=== PATIENT | female | born 1995 | race Caucasian/White ===

== ENCOUNTER 2016-09-11 17:36 | Emergency (ER) | payer OTHER ==
[~2016-09-11 17:36] MED LIST: ACET50TA PO; IBUP60TA PO; PRENTAB13 PO; ZOFR8TAB PO
[2016-09-11 18:22] LABS: CONTROL LINE UCG INT CTR LINE PRESENT
[2016-09-11] MEDS ORDERED: ONDANSETRON 4MG/2ML VIAL (J2405) As Ordered ONE (19:41)
[2016-09-11] MEDS ORDERED: MORPHINE 4 MG/ML 1ML SYRINGE As Ordered ONE (19:41)
[2016-09-11 20:00] LABS: BASO % 0.7 % (0.0-1.0); EOS # 0.1 K/mm3 (0.0-0.50); EOS % 1.9 % (0.0-3.0); LARGE UNSTAINED CELL # 0.1 K/mm3 (0.0-0.4); LARGE UNSTAINED CELL % 2.4 % (0.0-4.0); LYMPH # 2.3 K/mm3 (1.5-6.5); LYMPH % 41.4 % (24.0-44.0); MEAN CORPUSCULAR HEMOGLOBIN 24.8 pg (27.0-33.0); MEAN CORPUSCULAR HGB CONC 33.4 g/dl (32.0-36.5); MEAN CORPUSCULAR VOLUME 74.3 fl (80.0-96.0); MONO # 0.3 K/mm3 (0.0-0.8); MONO % 4.9 % (0.0-5.0); NEUTROPHILS # 2.7 K/mm3 (1.8-7.7); NEUTROPHILS % 48.7 % (36.0-66.0); PLATELET COUNT, AUTOMATED 204 k/mm3 (150-450); RED CELL DISTRIBUTION WIDTH 15.2 % (11.5-14.5); WHITE BLOOD COUNT 5.4 K/mm3 (4.0-10.0)
[2016-09-11 20:13] LABS: ALBUMIN 3.6 GM/DL (3.2-5.2); ALBUMIN/GLOBULIN RATIO 0.88 (1.00-1.93); ALKALINE PHOSPHATASE 76 U/L (45-117); ALT/SGPT 24 U/L (12-78); ANION GAP 8 MEQ/L (8-16); AST/SGOT 11 U/L (15-37); BILIRUBIN,DIRECT < 0.1 MG/DL (0.0-0.2); BILIRUBIN,TOTAL 0.2 MG/DL (0.2-1.0); BLOOD UREA NITROGEN 7 MG/DL (7-18); CALCIUM LEVEL 8.7 MG/DL (8.5-10.1); CARBON DIOXIDE LEVEL 27 MEQ/L (21-32); CHLORIDE LEVEL 108 MEQ/L (98-107); CREATININE FOR GFR 0.66 MG/DL (0.55-1.02); GLOMERULAR FILTRATION RATE > 60.0 (>60); GLUCOSE, FASTING 95 MG/DL (70-105); POTASSIUM SERUM 4.1 MEQ/L (3.5-5.1); SODIUM LEVEL 143 MEQ/L (136-145); TOTAL PROTEIN 7.7 GM/DL (6.4-8.2)
--- NOTE | 2016-09-11 20:40 | REPUSA ---
Clinical history: Right upper quadrant pain. Findings: The pancreas is limited in visualization secondary to overlying bowel gas. The liver demons trates uniform echotexture and echogenicity, with no mass lesions. However, there are two cystic lesi ons in the left lobe of the liver measuring up to 1.1 cm in diameter each. The right kidney measures 12.3 x 4.5 I 4.6 cm and is unremarkable. The gallbladder is unremarkable. The common bile duct measur es 4 mm and is within normal limits. There is no ascites. Impression: No acute findings.
[2016-09-11] MEDS ORDERED: NITROFURANTOIN (MACROBID) 100 MG CAP As Ordered ONE (21:53)
--- NOTE | 2016-09-11 22:08 | EDDOCDS ---
Physician Documentation [facility] Name: Kezia Butcher Age: 21 yrs Sex: Female : 1995 Arrival Date: 09/11/2016 Time: 17:36 Bed 12 Private MD: NO PRIMARY PHYSICIAN, . Disposition: 09/11/16 21:52 Discharged to Home/Self Care. Impression: Upper abdominal pain, unspecified, Urinary tract infection, site not specified. - Condition is Stable. - Discharge Instructions: Abdominal Pain, Adult, Urinary Tract Infection. - Prescriptions for Macrobid 100 mg Oral Capsule - take 100 milligrams by ORAL route every 12 hours for 7 days; 14 capsule. - Medication Reconciliation, Local Pharmacy Hours form. - Follow up: [facility]; When: 2 - 3 days; Reason: Recheck today's complaints. - Problem is new. - Symptoms have improved. - Notes: You were seen in the ED for upper abdominal pain. Bloodwork showed no acute findings. Ultrasound of the abdomen showed cystic lesions in the liver which will need following and recheck with your primary doctor but no other acute findings at this time. Chest Xray showed no acute findings as well. Urine tests did show bacteria which can be a sign of urinary tract infection. Take the antibiotics as written. test is negative. You will need to see a primary care doctor for ongoing care and recheck - please call the [facility] (see the referral below) and arrange to be seen. Return to the ED for any return of abdominal pain, fever, vomiting, inability to tolerate fluids, chest pain, trouble breathing, lightheadedness, loss of consciousness or any other concerns. Historical: - Allergies: No known drug Allergies; - Home Meds: 1. none - PMHx: none; - PSHx: none; - Social history: Smoking status: Patient states former smoker of tobacco. No barriers to communication noted, The patient speaks fluent Syriac, Speaks appropriately for age, Preferred Language: Syriac. - Family history: Not pertinent. - : The pt / caregiver states he / she is not on anticoagulants. Home medication list is obtained from the patient. - Exposure Risk Screening:: None identified. 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 3 in. (160.02 cm) (R); 19:44 BP 118 / 63 (auto/); kas2 19:44 Pulse 70 MON; Pulse Ox 100% ; kas2 19:55 BP 118 / 60 (auto/); kas2 19:55 Pulse 68 MON; Pulse Ox 100% ; kas2 20:10 BP 109 / 59 (auto/); kas2 20:10 Pulse 68 MON; Pulse Ox 99% ; kas2 20:25 BP 160 / 56 (auto/); kas2 20:25 Pulse 64 MON; Pulse Ox 99% ; kas2 20:40 BP 145 / 58 (auto/); kas2 20:40 Pulse 64 MON; Pulse Ox 99% ; kas2 20:48 BP 148 / 58; Pulse 99; Resp 18; Pulse Ox 99% ; Pain 4/10; kas2 20:55 BP 109 / 55 (auto/); kas2 20:55 Pulse 62 MON; Pulse Ox 99% ; kas2 21:10 BP 110 / 53 (auto/); kas2 21:10 Pulse 66 MON; Pulse Ox 99% ; kas2 21:10 Resp 20; Temp 98.3(O); Pain 0/10; kas2 21:25 BP 107 / 53 (auto/); kas2 21:25 Pulse 70 MON; Pulse Ox 98% ; kas2 21:40 BP 110 / 50 (auto/); kas2 21:40 Pulse 74 MON; Pulse Ox 99% ; kas2 21:55 BP 99 / 53 (auto/); kas2 21:56 Pulse 76 MON; Pulse Ox 98% ; kas2 17:37 Body Mass Index 37.20 (95.25 kg, 160.02 cm) dd6 MDM: 18:03 UA Ordered. EDMS 18:03 Urine Culture Ordered. EDMS 18:03 UCG- In Lab Ordered. EDMS 18:27 UCG- In Lab Reviewed. sd1 18:49 UA Reviewed. sd1 18:49 UCG- In Lab Reviewed. sd1 19:29 IV Saline Lock ordered. br1 19:30 Electron Gun Assembler/Pulse Ox/q 30 min VS ordered. br1 19:30 CBC with Diff Ordered. EDMS 19:30 BMP Ordered. EDMS 19:30 Liver Profile Ordered. EDMS 19:30 Lipase Ordered. EDMS 19:30 D-Dimer Quant Ordered. EDMS 19:30 morphine 4 mg IVP once ordered. br1 19:30 Ondansetron 4 mg IVP once ordered. br1 19:30 NS 0.9% 1000 ml IV at 150 mL/hr continuous ordered. br1 19:30 Ultrasound Abd Limited Ordered. EDMS 19:30 Chest, 2 View (pa\E\lat) Ordered. EDMS 19:31 ECG WITH READING ER PHYS+CARDIAG ordered. EDMS 20:23 CBC with Diff Reviewed. br1 20:23 BMP Reviewed. br1 20:23 Liver Profile Reviewed. br1 20:23 Lipase Reviewed. br1 20:23 D-Dimer Quant Reviewed. br1 20:37 Financial registration complete. zo 20:38 [facility] Payment Agreement was scanned into [employer] and attached to record. zo 21:49 Nitrofurantoin 100 mg PO once ordered. br1 Administered Medications: 19:48 Drug: Ondansetron 4 mg [ondansetron HCl 2 mg/mL intravenous solution (2 mL)] Route: kas2 IVP; Site: right antecubital; 19:48 Drug: NS 0.9% 1000 ml [sodium chloride 0.9 % intravenous solution] Route: IV; Rate: 150 kas2 mL/hr; Site: right antecubital; 19:49 Drug: morphine 4 mg [morphine 4 mg/mL intravenous cartridge (1 mL)] Route: IVP; Site: kas2 right antecubital; 20:48 Follow up: BP 148 / 58; Pulse 99 bpm; Resp 18 bpm; Pulse Ox 99% ; Pain 4/10 Adult; kas2 Response: No Adverse Reaction; Pain is decreased 21:54 Drug: Nitrofurantoin 100 mg [nitrofurantoin macrocrystal 50 mg capsule (2 caps)] Route: kas2 PO; Signatures: Dispatcher [employer] EDMS Mariza Piedra MD MD sd1 Nila Booth Lisa, RN RN lf1 Saroj Loo MD MD br1 Maria Esther Stewart RN RN kas2 The chart was reviewed and I authenticate all verbal orders and agree with the evaluation and treatment provided.Attachments: 20:38 [facility] Payment Agreement zo MTDD
--- NOTE | 2016-09-11 22:08 | EDDOCDS ---
Nurse's Notes [facility] Name: Kezia Butcher Age: 21 yrs Sex: Female : 1995 Arrival Date: 09/11/2016 Time: 17:36 Bed 12 Private MD: NO PRIMARY PHYSICIAN, . Diagnosis: Upper abdominal pain, unspecified;Urinary tract infection, site not specified Presentation: 09/11 17:58 Presenting complaint: Patient states: Intermittent diffuse lower abdominal pain that lf1 has been ongoing for more than two weeks. Pain describes pain as sharp and rates pain at 6/10 with nausea, dizziness and increased urination. reports burning with urination. Risk factors: the patient reports no vaginal bleeding. Adult Sepsis Screening: The patient does not have new or worsening altered mentation. Patient's respiratory rate is less than 22. Systolic blood pressure is greater than 100. Patient has a qSOFA score of 0- Negative Sepsis Screen. Suicide/Homicide risk assessment- the patient denies having any suicidal and/or homicidal ideations and does not present with any other emotional, behavioral or mental health complaints. 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 Transition of care: patient was not received from another setting of care. 17:58 Acuity: ROBERTO Level 3 lf1 17:58 Method Of Arrival: Walkin/Carried/Asstd lf1 Triage Assessment: 18:01 General: Appears in no apparent distress, comfortable, Behavior is cooperative. Pain: lf1 Location: right lower quadrant and left lower quadrant Pain currently is 6 out of 10 on a pain scale. Quality of pain is described as sharp. HIV screening NA for this visit Offered previously. Neurological: Level of Consciousness is awake, alert. EENT: No deficits noted. Cardiovascular: No deficits noted. Respiratory: Respiratory effort is even, unlabored. GI: Reports lower abdominal pain, nausea. : Reports burning with urination. Derm: Denies rashes. Injury Description: No known injury. 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 none - PMHx: none; - PSHx: none; - Social history: Smoking status: Patient states former smoker of tobacco. No barriers to communication noted, The patient speaks fluent Polish, Speaks appropriately for age, Preferred Language: Polish. - Family history: Not pertinent. - : The pt / caregiver states he / she is not on anticoagulants. Home medication list is obtained from the patient. - Exposure Risk Screening:: None identified. Screenin:03 Screening information is obtained from the patient. Fall risk: No risks identified. lf1 Assistance ADL's: requires no assistance with activities of daily living. Abuse/DV Screen: The patient / caregiver reports he/she is: not in a situation that causes fear, pain or injury. Nutritional screening: No deficits noted. Advance Directives: Currently, there is no health care proxy. There is no active DNR order. There is no living will. home support is adequate. Assessment: 19:25 General: Appears in no apparent distress, comfortable, well nourished, well groomed, kas2 Behavior is appropriate for age, cooperative. Pain: Location: abdomen and left lower quadrant and right lower quadrant Pain currently is 5 out of 10 on a pain scale. Neurological: Level of Consciousness is awake, alert, Oriented to person, place, time. Cardiovascular: Capillary refill < 3 seconds Heart tones S1 S2 Rhythm is sinus tachycardia No ectopy. Respiratory: Airway is patent Respiratory effort is even, unlabored, Respiratory pattern is regular, symmetrical, Breath sounds are clear bilaterally. GI: Abdomen is obese, Bowel sounds present X 4 quads. Abd is tender to palpation X 4 quads. Derm: Skin is intact, Skin is dry, Skin is pink, warm & dry. Skin temperature is warm. 20:30 General: Patient resting in bed with friend at bedside. States morphine helped with her kas2 abdominal pain 4/10. No apparent distress noted. VSS. Call [facility] within reach. Will continue to monitor.. 21:20 General: Appears in no apparent distress, comfortable, Behavior is appropriate for age, kas2 cooperative. Pain: Denies pain. Neurological: Level of Consciousness is awake, alert, Oriented to person, place, time. Respiratory: Airway is patent Respiratory effort is even, unlabored, Respiratory pattern is regular, symmetrical. Derm: Skin is intact, Skin is dry, Skin is pink, warm & dry. Skin temperature is warm. Vital Signs: 17:37 BP 146 / 73; Pulse 104; Resp 18 S; Temp 98.2(O); Pulse Ox 97% on R/A; Weight 95.25 kg dd6 (M); Height 5 ft. 3 in. (160.02 cm) (R); 19:44 BP 118 / 63 (auto/); kas2 19:44 Pulse 70 MON; Pulse Ox 100% ; kas2 19:55 BP 118 / 60 (auto/); kas2 19:55 Pulse 68 MON; Pulse Ox 100% ; kas2 20:10 BP 109 / 59 (auto/); kas2 20:10 Pulse 68 MON; Pulse Ox 99% ; kas2 20:25 BP 160 / 56 (auto/); kas2 20:25 Pulse 64 MON; Pulse Ox 99% ; kas2 20:40 BP 145 / 58 (auto/); kas2 20:40 Pulse 64 MON; Pulse Ox 99% ; kas2 20:48 BP 148 / 58; Pulse 99; Resp 18; Pulse Ox 99% ; Pain 4/10; kas2 20:55 BP 109 / 55 (auto/); kas2 20:55 Pulse 62 MON; Pulse Ox 99% ; kas2 21:10 BP 110 / 53 (auto/); kas2 21:10 Pulse 66 MON; Pulse Ox 99% ; kas2 21:10 Resp 20; Temp 98.3(O); Pain 0/10; kas2 21:25 BP 107 / 53 (auto/); kas2 21:25 Pulse 70 MON; Pulse Ox 98% ; kas2 21:40 BP 110 / 50 (auto/); kas2 21:40 Pulse 74 MON; Pulse Ox 99% ; kas2 21:55 BP 99 / 53 (auto/); kas2 21:56 Pulse 76 MON; Pulse Ox 98% ; kas2 17:37 Body Mass Index 37.20 (95.25 kg, 160.02 cm) dd6 Vitals: 17:37 Log In Time: September 11, 2016 at 17:35. dd6 ED Course: 17:36 Patient visited by Cong Douglas PCA. dd6 17:36 Patient moved to Waiting dd6 17:37 NO PRIMARY PHYSICIAN, . is Private Physician. dd6 17:38 Patient moved to Pre RCE dd6 18:01 Triage Initiated lf1 18:14 UCG- In Lab Sent. kr3 18:14 Urine Culture Sent. kr3 18:14 UA Sent. kr3 19:15 Maria Esther Stewart,RN is Primary Nurse. lf1 19:15 Patient moved to 12 lf1 19:16 Patient visited by Maria Esther Stewart RN. kas2 19:22 Saroj Loo MD is Attending Physician. br1 19:28 Patient visited by Maria Esther Stewart RN. kas2 19:31 Patient visited by Saroj Loo MD. br1 19:39 Patient visited by Maria Esther Stewart RN. 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 Pulse ox on. NIBP on. kas2 19:39 Inserted saline lock: 20 gauge in right antecubital area and blood collected. The kas2 patient tolerated the procedure well. No procedures done that require assistance. 19:49 Patient visited by Maria Esther Stewart RN. kas2 20:00 Patient moved to Ultrasound dmg 20:18 Patient moved to 12 dmg 20:27 Patient visited by Maria Esther Stewart RN. kas2 20:37 EKG done. (by ED staff). Reviewed by Saroj Loo MD. ajs 20:38 [facility] Payment Agreement was scanned into [employer] and attached to record. zo 21:01 Patient visited by Maria Esther Stewart RN. kas2 21:02 Patient visited by Maria Esther Stewart RN. kas2 21:22 Ultrasound Abd Limited Returned. EDMS 21:35 Patient visited by Maria Esther Stewart RN. kas2 21:50 Patient visited by Saroj Loo MD. br1 21:52 [facility] is Referral Physician. br1 21:57 Patient visited by Maria Esther Stewart RN. kas2 22:05 Discontinued IV bleeding controlled, pressure dressing applied, No redness/swelling at [facility] site. 22:06 The patient / caregiver is instructed regarding the plan of care and ED course. kas2 22:07 Patient visited by Maria Esther Stewart RN. kas2 Administered Medications: 19:48 Drug: Ondansetron 4 mg [ondansetron HCl 2 mg/mL intravenous solution (2 mL)] Route: kas2 IVP; Site: right antecubital; 19:48 Drug: NS 0.9% 1000 ml [sodium chloride 0.9 % intravenous solution] Route: IV; Rate: 150 kas2 mL/hr; Site: right antecubital; 19:49 Drug: morphine 4 mg [morphine 4 mg/mL intravenous cartridge (1 mL)] Route: IVP; Site: kas2 right antecubital; 20:48 Follow up: BP 148 / 58; Pulse 99 bpm; Resp 18 bpm; Pulse Ox 99% ; Pain 4/10 Adult; kas2 Response: No Adverse Reaction; Pain is decreased 21:54 Drug: Nitrofurantoin 100 mg [nitrofurantoin macrocrystal 50 mg capsule (2 caps)] Route: kas2 PO; Order Results: Lab Order: UA; SPEC'M 09/11/16 18:14 Test: APPEARANCE, URINE; Value: CLOUDY; Range: CLEAR; Abnormal: Above high normal; Status: F Test: COLOR, URINE; Value: YELLOW; Range: YELLOW; Status: F Test: PH,URINE; Value: 6.0; Range: 5.0-9.0; Units: UNITS; Status: F Test: SPECIFIC GRAVITY URINE AUTO; Value: 1.023; Range: 1.002-1.035; Status: F Test: PROTEIN, URINE AUTO; Value: NEGATIVE; Range: NEGATIVE; Units: mg/dL; Status: F Test: GLUCOSE, URINE (UA) AUTO; Value: NEGATIVE; Range: NEGATIVE; Units: mg/dL; Status: F Test: KETONE, URINE AUTO; Value: NEGATIVE; Range: NEGATIVE; Units: mg/dL; Status: F Test: UROBILINOGEN, URINE AUTO; Value: 0.2; Range: 0.0-2.0; Units: mg/dL; Status: F Test: BILIRUBIN, URINE AUTO; Value: NEGATIVE; Range: NEGATIVE; Status: F Test: NITRITE, URINE AUTO; Value: NEGATIVE; Range: NEGATIVE; Status: F Test: LEUKOCYTE ESTERASE, URINE AUTO; Value: 2+; Range: NEGATIVE; Abnormal: Above high normal; Status: F Test: BLOOD, URINE BLOOD; Value: NEGATIVE; Range: NEGATIVE; Status: F Test: SPERM, URINE AUTO; Range: NONE; Status: I Test: WBC, URINE AUTO; Value: 18; Range: 0-3; Abnormal: Above high normal; Units: /HPF; Status: F Test: RBC, URINE AUTO; Value: 2; Range: 0-3; Units: /HPF; Status: F Test: BACTERIA, URINE AUTO; Value: 2+; Range: NEGATIVE; Abnormal: Above high normal; Status: F Test: SQUAMOUS EPITHELIAL CELL UR AU; Value: 24; Range: 0-6; Units: /HPF; Status: F Test: MUCUS, URINE; Value: SMALL; Range: NEGATIVE; Status: F Test: HYALINE CAST, URINE AUTO; Value: 0; Range: 0-1; Units: /LPF; Status: F Lab Order: UCG- In Lab; SPEC'M 09/11/16 18:14 Test: URINE PREG TEST; Value: NEGATIVE; Range: NEGATIVE; Status: F Lab Order: CBC with Diff; SPEC'M 09/11/16 19:36 Test: WHITE BLOOD COUNT; Value: 5.4; Range: 4.0-10.0; Units: K/mm3; Status: F Test: RED BLOOD COUNT; Value: 4.70; Range: 4.00-5.40; Units: M/mm3; Status: F Test: HEMOGLOBIN; Value: 11.7; Range: 12.0-16.0; Abnormal: Below low normal; Units: g/dl; Status: F Test: HEMATOCRIT; Value: 34.9; Range: 36.0-47.0; Abnormal: Below low normal; Units: %; Status: F Test: MEAN CORPUSCULAR VOLUME; Value: 74.3; Range: 80.0-96.0; Abnormal: Below low normal; Units: fl; Status: F Test: MEAN CORPUSCULAR HEMOGLOBIN; Value: 24.8; Range: 27.0-33.0; Abnormal: Below low normal; Units: pg; Status: F Test: MEAN CORPUSCULAR HGB CONC; Value: 33.4; Range: 32.0-36.5; Units: g/dl; Status: F Test: RED CELL DISTRIBUTION WIDTH; Value: 15.2; Range: 11.5-14.5; Abnormal: Above high normal; Units: %; Status: F Test: PLATELET COUNT, AUTOMATED; Value: 204; Range: 150-450; Units: k/mm3; Status: F Test: NEUTROPHILS %; Value: 48.7; Range: 36.0-66.0; Units: %; Status: F Test: LYMPH %; Value: 41.4; Range: 24.0-44.0; Units: %; Status: F Test: MONO %; Value: 4.9; Range: 0.0-5.0; Units: %; Status: F Test: EOS %; Value: 1.9; Range: 0.0-3.0; Units: %; Status: F Test: BASO %; Value: 0.7; Range: 0.0-1.0; Units: %; Status: F Test: LARGE UNSTAINED CELL %; Value: 2.4; Range: 0.0-4.0; Units: %; Status: F Test: NEUTROPHILS #; Value: 2.7; Range: 1.8-7.7; Units: K/mm3; Status: F Test: LYMPH #; Value: 2.3; Range: 1.5-6.5; Units: K/mm3; Status: F Test: MONO #; Value: 0.3; Range: 0.0-0.8; Units: K/mm3; Status: F Test: EOS #; Value: 0.1; Range: 0.0-0.50; Units: K/mm3; Status: F Test: BASO #; Value: 0.0; Range: 0.0-0.2; Units: K/mm3; Status: F Test: LARGE UNSTAINED CELL #; Value: 0.1; Range: 0.0-0.4; Units: K/mm3; Status: F Lab Order: [facility]; SPEC'M 09/11/16 19:36 Test: GLUCOSE, FASTING; Value: 95; Range: 70-105; Units: MG/DL; Status: F Test: BLOOD UREA NITROGEN; Value: 7; Range: 7-18; Units: MG/DL; Status: F Test: CREATININE FOR GFR; Value: 0.66; Range: 0.55-1.02; Units: MG/DL; Status: F Test: GLOMERULAR FILTRATION RATE; Value: > 60.0; Range: >60; Status: F Test: SODIUM LEVEL; Value: 143; Range: 136-145; Units: MEQ/L; Status: F Test: POTASSIUM SERUM; Value: 4.1; Range: 3.5-5.1; Units: MEQ/L; Status: F Test: CHLORIDE LEVEL; Value: 108; Range: 98-107; Abnormal: Above high normal; Units: MEQ/L; Status: F Test: CARBON DIOXIDE LEVEL; Value: 27; Range: 21-32; Units: MEQ/L; Status: F Test: ANION GAP; Value: 8; Range: 8-16; Units: MEQ/L; Status: F Test: CALCIUM LEVEL; Value: 8.7; Range: 8.5-10.1; Units: MG/DL; Status: F Test Note: ; Units are mL/min/1.73 m2 Chronic Kidney Disease Staging per NKF: Stage I & II GFR >=60 Normal to Mildly Decreased Stage III GFR 30-59 Moderately Decreased Stage IV GFR 15-29 Severely Decreased Stage V GFR <15 Very Little GFR Left ESRD GFR <15 on EMERGENCY DEPARTMENT AIDE Lab Order: Liver Profile; SPEC'M 09/11/16 19:36 Test: AST/SGOT; Value: 11; Range: 15-37; Abnormal: Below low normal; Units: U/L; Status: F Test: ALT/SGPT; Value: 24; Range: 12-78; Units: U/L; Status: F Test: ALKALINE PHOSPHATASE; Value: 76; Range: 45-117; Units: U/L; Status: F Test: BILIRUBIN,TOTAL; Value: 0.2; Range: 0.2-1.0; Units: MG/DL; Status: F Test: BILIRUBIN,DIRECT; Value: < 0.1; Range: 0.0-0.2; Units: MG/DL; Status: F Test: TOTAL PROTEIN; Value: 7.7; Range: 6.4-8.2; Units: GM/DL; Status: F Test: ALBUMIN; Value: 3.6; Range: 3.2-5.2; Units: GM/DL; Status: F Test: ALBUMIN/GLOBULIN RATIO; Value: 0.88; Range: 1.00-1.93; Abnormal: Below low normal; Status: F Lab Order: Lipase; SPEC'09/11/16 19:36 Test: LIPASE; Value: 83; Range: 73-393; Units: U/L; Status: F Lab Order: D-Dimer Quant; SPEC'09/11/16 19:36 Test: D-DIMER QUANT; Value: < 270.0; Range: <500; Units: ng/ml; Status: F Radiology Order: Ultrasound Abd Limited Test: Ultrasound Abd Limited REASON FOR EXAMINATION: Biliary Colic; ; Clinical history: Right upper quadrant pain.; Findings: The pancreas is limited in visualization secondary to overlying bowel gas. The liver demons; trates uniform echotexture and echogenicity, with no mass lesions. However, there are two cystic lesi; ons in the left lobe of the liver measuring up to 1.1 cm in diameter each. The right kidney measures; 12.3 x 4.5 I 4.6 cm and is unremarkable. The gallbladder is unremarkable. The common bile duct measur; es 4 mm and is within normal limits. There is no ascites.; Impression: No acute findings.; ; Outcome: 21:52 Discharge ordered by Provider. br1 22:05 Discharge Assessment: patient administered narcotics - yes. Pt provided with safe kas2 discharge. The following High Risk Discharge criteria are identified: None. Discharged to home ambulatory, with friend. Condition: good Condition: stable Condition: improved. Ultrasound Study completed. Property :Personal belongings accompany Pt. 22:07 Patient left the ED. kas2 Signatures: Dispatcher [employer] Ashli Hernandez Kathleen,RN RN kr3 Nila Booth Lisa,RN RN lf1 Saroj Loo MD MD br1 Cong Douglas, AUTOMOBILE RENTAL CLERK AUTOMOBILE RENTAL CLERK dd6 Gricel Schwartz Kim,RN RN kas2 Corrections: (The following items were deleted from the chart) 21:01 20:58 General: Appears kas2 kas2 [email or web address]
--- NOTE | 2016-09-12 01:11 | REP ---
Clinical: Acute chest pain . Comparison: 09/17/2015 . Technique: PA and lateral. Findings: The mediastinum and cardiac silhouette are normal. The lung romero are clear and without acute consolidation, effusion, or pneumothorax. The skeletal structures are intact and normal. Impression: 1. No acute cardiopulmonary process. Signed by Michele Ortiz MD 09/12/2016 01:03 A
--- NOTE | 2016-09-13 06:41 | ECGEPIP ---
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
--- NOTE | 2016-09-13 23:08 | EDDOCDS ---
Physician Documentation [facility] Name: Kezia Butcher Age: 21 yrs Sex: Female : 1995 Arrival Date: 09/11/2016 Time: 17:36 Bed 12 Private MD: NO PRIMARY PHYSICIAN, . Disposition: 09/11/16 21:52 Discharged to Home/Self Care. Impression: Upper abdominal pain, unspecified, Urinary tract infection, site not specified. - Condition is Stable. - Discharge Instructions: Abdominal Pain, Adult, Urinary Tract Infection. - Prescriptions for Macrobid 100 mg Oral Capsule - take 100 milligrams by ORAL route every 12 hours for 7 days; 14 capsule. - Medication Reconciliation, Local Pharmacy Hours form. - [facility] up: [facility]; When: 2 - 3 days; Reason: Recheck today's complaints. - Problem is new. - Symptoms have improved. - Notes: You were seen in the ED for upper abdominal pain. Bloodwork showed no acute findings. Ultrasound of the abdomen showed cystic lesions in the liver which will need following and recheck with your primary doctor but no other acute findings at this time. Chest Xray showed no acute findings as well. Urine tests did show bacteria which can be a sign of urinary tract infection. Take the antibiotics as written. test is negative. You will need to see a primary care doctor for ongoing care and recheck - please call the [facility] (see the referral below) and arrange to be seen. Return to the ED for any return of abdominal pain, fever, vomiting, inability to tolerate fluids, chest pain, trouble breathing, lightheadedness, loss of consciousness or any other concerns. Historical: - Allergies: No known drug Allergies; - Home Meds: 1. none - PMHx: none; - PSHx: none; - Social history: Smoking status: Patient states former smoker of tobacco. No barriers to communication noted, The patient speaks fluent Turkish, Speaks appropriately for age, Preferred Language: Turkish. - Family history: Not pertinent. - : The pt / caregiver states he / she is not on anticoagulants. Home medication list is obtained from the patient. - Exposure Risk Screening:: None identified. 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 3 in. (160.02 cm) (R); 19:44 BP 118 / 63 (auto/); kas2 19:44 Pulse 70 MON; Pulse Ox 100% ; kas2 19:55 BP 118 / 60 (auto/); kas2 19:55 Pulse 68 MON; Pulse Ox 100% ; kas2 20:10 BP 109 / 59 (auto/); kas2 20:10 Pulse 68 MON; Pulse Ox 99% ; kas2 20:25 BP 160 / 56 (auto/); kas2 20:25 Pulse 64 MON; Pulse Ox 99% ; kas2 20:40 BP 145 / 58 (auto/); kas2 20:40 Pulse 64 MON; Pulse Ox 99% ; kas2 20:48 BP 148 / 58; Pulse 99; Resp 18; Pulse Ox 99% ; Pain 4/10; kas2 20:55 BP 109 / 55 (auto/); kas2 20:55 Pulse 62 MON; Pulse Ox 99% ; kas2 21:10 BP 110 / 53 (auto/); kas2 21:10 Pulse 66 MON; Pulse Ox 99% ; kas2 21:10 Resp 20; Temp 98.3(O); Pain 0/10; kas2 21:25 BP 107 / 53 (auto/); kas2 21:25 Pulse 70 MON; Pulse Ox 98% ; kas2 21:40 BP 110 / 50 (auto/); kas2 21:40 Pulse 74 MON; Pulse Ox 99% ; kas2 21:55 BP 99 / 53 (auto/); kas2 21:56 Pulse 76 MON; Pulse Ox 98% ; kas2 17:37 Body Mass Index 37.20 (95.25 kg, 160.02 cm) dd6 MDM: 18:03 UA Ordered. EDMS 18:03 Urine Culture Ordered. EDMS 18:03 UCG- In Lab Ordered. EDMS 18:27 UCG- In Lab Reviewed. sd1 18:49 UA Reviewed. sd1 18:49 UCG- In Lab Reviewed. sd1 19:29 IV Saline Lock ordered. br1 19:30 Telecommunications Cable Jointer/Pulse Ox/q 30 min VS ordered. br1 19:30 CBC with Diff Ordered. EDMS 19:30 BMP Ordered. EDMS 19:30 Liver Profile Ordered. EDMS 19:30 Lipase Ordered. EDMS 19:30 D-Dimer Quant Ordered. EDMS 19:30 morphine 4 mg IVP once ordered. br1 19:30 Ondansetron 4 mg IVP once ordered. br1 19:30 NS 0.9% 1000 ml IV at 150 mL/hr continuous ordered. br1 19:30 Ultrasound Abd Limited Ordered. EDMS 19:30 Chest, 2 View (pa\E\lat) Ordered. EDMS 19:31 ECG WITH READING ER PHYS+CARDIAG ordered. EDMS 20:23 CBC with Diff Reviewed. br1 20:23 BMP Reviewed. br1 20:23 Liver Profile Reviewed. br1 20:23 Lipase Reviewed. br1 20:23 D-Dimer Quant Reviewed. br1 20:37 Financial registration complete. zo 20:38 [facility] Payment Agreement was scanned into [employer] and attached to record. zo 21:49 Nitrofurantoin 100 mg PO once ordered. br1 09/12 11:27 T-Sheet-- Draft Copy was scanned into [employer] and attached to record. gb 11:27 ECG/EKG was scanned into [employer] and attached to record. gb 11:27 Radiology Report was scanned into [employer] and attached to record. gb Administered Medications: 09/11 19:48 Drug: Ondansetron 4 mg [ondansetron HCl 2 mg/mL intravenous solution (2 mL)] Route: kas2 IVP; Site: right antecubital; 19:48 Drug: NS 0.9% 1000 ml [sodium chloride 0.9 % intravenous solution] Route: IV; Rate: 150 kas2 mL/hr; Site: right antecubital; 19:49 Drug: morphine 4 mg [morphine 4 mg/mL intravenous cartridge (1 mL)] Route: IVP; Site: kas2 right antecubital; 20:48 Follow up: BP 148 / 58; Pulse 99 bpm; Resp 18 bpm; Pulse Ox 99% ; Pain 4/10 Adult; kas2 Response: No Adverse Reaction; Pain is decreased 21:54 Drug: Nitrofurantoin 100 mg [nitrofurantoin macrocrystal 50 mg capsule (2 caps)] Route: kas2 PO; Signatures: Dispatcher [employer] EDMS Dorothea Mariza, MD MD sd1 Bianca Cantu, Reg Reg gb Nila Booth Lisa, RN RN lf1 Saroj Loo MD MD br1 Maria Esther Stewart RN RN kas2 The chart was reviewed and I authenticate all verbal orders and agree with the evaluation and treatment provided.Attachments: 20:38 [facility] Payment Agreement zo 09/12 11:27 T-Sheet-- Draft Copy gb 11:27 ECG/EKG gb Chart Complete MTDD
--- NOTE | 2016-09-13 23:08 | EDDOCDS ---
Nurse's Notes [facility] Name: Kezia Webb Age: 21 yrs Sex: Female : 1995 Arrival Date: 09/11/2016 Time: 17:36 Bed 12 Private MD: NO PRIMARY PHYSICIAN, . Diagnosis: Upper abdominal pain, unspecified;Urinary tract infection, site not specified Presentation: 09/11 17:58 Presenting complaint: Patient states: Intermittent diffuse lower abdominal pain that lf1 has been ongoing for more than two weeks. Pain describes pain as sharp and rates pain at 6/10 with nausea, dizziness and increased urination. reports burning with urination. Risk factors: the patient reports no vaginal bleeding. Adult Sepsis Screening: The patient does not have new or worsening altered mentation. Patient's respiratory rate is less than 22. Systolic blood pressure is greater than 100. Patient has a qSOFA score of 0- Negative Sepsis Screen. Suicide/Homicide risk assessment- the patient denies having any suicidal and/or homicidal ideations and does not present with any other emotional, behavioral or mental health complaints. Status: Patient is not a central service technician or dependent. Transition of care: patient was not received from another setting of care. 17:58 Acuity: ROBERTO Level 3 lf1 17:58 Method Of Arrival: Walkin/Carried/Asstd lf1 Triage Assessment: 18:01 General: Appears in no apparent distress, comfortable, Behavior is cooperative. Pain: lf1 Location: right lower quadrant and left lower quadrant Pain currently is 6 out of 10 on a pain scale. Quality of pain is described as sharp. HIV screening NA for this visit Offered previously. Neurological: Level of Consciousness is awake, alert. EENT: No deficits noted. Cardiovascular: No deficits noted. Respiratory: Respiratory effort is even, unlabored. GI: Reports lower abdominal pain, nausea. : Reports burning with urination. Derm: Denies rashes. Injury Description: No known injury. 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 none - PMHx: none; - PSHx: none; - Social history: Smoking status: Patient states former smoker of tobacco. No barriers to communication noted, The patient speaks fluent Welsh, Speaks appropriately for age, Preferred Language: Welsh. - Family history: Not pertinent. - : The pt / caregiver states he / she is not on anticoagulants. Home medication list is obtained from the patient. - Exposure Risk Screening:: None identified. Screenin:03 Screening information is obtained from the patient. Fall risk: No risks identified. lf1 Assistance ADL's: requires no assistance with activities of daily living. Abuse/DV Screen: The patient / caregiver reports he/she is: not in a situation that causes fear, pain or injury. Nutritional screening: No deficits noted. Advance Directives: Currently, there is no health care proxy. There is no active DNR order. There is no living will. home support is adequate. Assessment: 19:25 General: Appears in no apparent distress, comfortable, well nourished, well groomed, kas2 Behavior is appropriate for age, cooperative. Pain: Location: abdomen and left lower quadrant and right lower quadrant Pain currently is 5 out of 10 on a pain scale. Neurological: Level of Consciousness is awake, alert, Oriented to person, place, time. Cardiovascular: Capillary refill < 3 seconds Heart tones S1 S2 Rhythm is sinus tachycardia No ectopy. Respiratory: Airway is patent Respiratory effort is even, unlabored, Respiratory pattern is regular, symmetrical, Breath sounds are clear bilaterally. GI: Abdomen is obese, Bowel sounds present X 4 quads. Abd is tender to palpation X 4 quads. Derm: Skin is intact, Skin is dry, Skin is pink, warm & dry. Skin temperature is warm. 20:30 General: Patient resting in bed with friend at bedside. States morphine helped with her kas2 abdominal pain 4/10. No apparent distress noted. VSS. Call [facility] within reach. Will continue to monitor.. 21:20 General: Appears in no apparent distress, comfortable, Behavior is appropriate for age, kas2 cooperative. Pain: Denies pain. Neurological: Level of Consciousness is awake, alert, Oriented to person, place, time. Respiratory: Airway is patent Respiratory effort is even, unlabored, Respiratory pattern is regular, symmetrical. Derm: Skin is intact, Skin is dry, Skin is pink, warm & dry. Skin temperature is warm. Vital Signs: 17:37 BP 146 / 73; Pulse 104; Resp 18 S; Temp 98.2(O); Pulse Ox 97% on R/A; Weight 95.25 kg dd6 (M); Height 5 ft. 3 in. (160.02 cm) (R); 19:44 BP 118 / 63 (auto/); kas2 19:44 Pulse 70 MON; Pulse Ox 100% ; kas2 19:55 BP 118 / 60 (auto/); kas2 19:55 Pulse 68 MON; Pulse Ox 100% ; kas2 20:10 BP 109 / 59 (auto/); kas2 20:10 Pulse 68 MON; Pulse Ox 99% ; kas2 20:25 BP 160 / 56 (auto/); kas2 20:25 Pulse 64 MON; Pulse Ox 99% ; kas2 20:40 BP 145 / 58 (auto/); kas2 20:40 Pulse 64 MON; Pulse Ox 99% ; kas2 20:48 BP 148 / 58; Pulse 99; Resp 18; Pulse Ox 99% ; Pain 4/10; kas2 20:55 BP 109 / 55 (auto/); kas2 20:55 Pulse 62 MON; Pulse Ox 99% ; kas2 21:10 BP 110 / 53 (auto/); kas2 21:10 Pulse 66 MON; Pulse Ox 99% ; kas2 21:10 Resp 20; Temp 98.3(O); Pain 0/10; kas2 21:25 BP 107 / 53 (auto/); kas2 21:25 Pulse 70 MON; Pulse Ox 98% ; kas2 21:40 BP 110 / 50 (auto/); kas2 21:40 Pulse 74 MON; Pulse Ox 99% ; kas2 21:55 BP 99 / 53 (auto/); kas2 21:56 Pulse 76 MON; Pulse Ox 98% ; kas2 17:37 Body Mass Index 37.20 (95.25 kg, 160.02 cm) dd6 Vitals: 17:37 Log In Time: September 11, 2016 at 17:35. dd6 ED Course: 17:36 Patient visited by Cong Douglas PCA. dd6 17:36 Patient moved to Waiting dd6 17:37 NO PRIMARY PHYSICIAN, . is Private Physician. dd6 17:38 Patient moved to Pre RCE dd6 18:01 Triage Initiated lf1 18:14 UCG- In Lab Sent. kr3 18:14 Urine Culture Sent. kr3 18:14 UA Sent. kr3 19:15 Maria Esther Stewart,RN is Primary Nurse. lf1 19:15 Patient moved to 12 lf1 19:16 Patient visited by Maria Esther Stewart RN. kas2 19:22 Saroj Loo MD is Attending Physician. br1 19:28 Patient visited by Maria Esther Stewart RN. kas2 19:31 Patient visited by Saroj Loo MD. br1 19:39 Patient visited by Maria Esther Stewart RN. kas2 19:39 school bus monitor on. Pulse ox on. NIBP on. kas2 19:39 Inserted saline lock: 20 gauge in right antecubital area and blood collected. The kas2 patient tolerated the procedure well. No procedures done that require assistance. 19:49 Patient visited by Maria Esther Stewart RN. kas2 20:00 Patient moved to Ultrasound dmg 20:18 Patient moved to 12 dmg 20:27 Patient visited by Maria Esther Stewart RN. kas2 20:37 EKG done. (by ED staff). Reviewed by Saroj Loo MD. ajs 20:38 [facility] Payment Agreement was scanned into [employer] and attached to record. zo 21:01 Patient visited by Maria Esther Stewart RN. kas2 21:02 Patient visited by Maria Esther Stewart RN. kas2 21:22 Ultrasound Abd Limited Returned. EDMS 21:35 Patient visited by Maria Esther Stewart RN. kas2 21:50 Patient visited by Saroj Loo MD. br1 21:52 [facility] is Referral Physician. br1 21:57 Patient visited by Maria Esther Stewart RN. kas2 22:05 Discontinued IV bleeding controlled, pressure dressing applied, No redness/swelling at [facility] site. 22:06 The patient / caregiver is instructed regarding the plan of care and ED course. kas2 22:07 Patient visited by Maria Esther Stewart RN. kas2 09/12 01:37 Chest, 2 View (pa\E\lat) Returned. EDMS 11:27 T-Sheet-- Draft Copy was scanned into [employer] and attached to record. gb 11:27 ECG/EKG was scanned into [employer] and attached to record. gb 11:27 Radiology Report was scanned into [employer] and attached to record. gb 09/13 06:53 EKG-ADULT Returned. EDMS Administered Medications: 09/11 19:48 Drug: Ondansetron 4 mg [ondansetron HCl 2 mg/mL intravenous solution (2 mL)] Route: kas2 IVP; Site: right antecubital; 19:48 Drug: NS 0.9% 1000 ml [sodium chloride 0.9 % intravenous solution] Route: IV; Rate: 150 kas2 mL/hr; Site: right antecubital; 19:49 Drug: morphine 4 mg [morphine 4 mg/mL intravenous cartridge (1 mL)] Route: IVP; Site: kas2 right antecubital; 20:48 Follow up: BP 148 / 58; Pulse 99 bpm; Resp 18 bpm; Pulse Ox 99% ; Pain 4/10 Adult; kas2 Response: No Adverse Reaction; Pain is decreased 21:54 Drug: Nitrofurantoin 100 mg [nitrofurantoin macrocrystal 50 mg capsule (2 caps)] Route: kas2 PO; Order Results: Lab Order: UA; SPEC'M 09/11/16 18:14 Test: APPEARANCE, URINE; Value: CLOUDY; Range: CLEAR; Abnormal: Above high normal; Status: F Test: COLOR, URINE; Value: YELLOW; Range: YELLOW; Status: F Test: PH,URINE; Value: 6.0; Range: 5.0-9.0; Units: UNITS; Status: F Test: SPECIFIC GRAVITY URINE AUTO; Value: 1.023; Range: 1.002-1.035; Status: F Test: PROTEIN, URINE AUTO; Value: NEGATIVE; Range: NEGATIVE; Units: mg/dL; Status: F Test: GLUCOSE, URINE (UA) AUTO; Value: NEGATIVE; Range: NEGATIVE; Units: mg/dL; Status: F Test: KETONE, URINE AUTO; Value: NEGATIVE; Range: NEGATIVE; Units: mg/dL; Status: F Test: UROBILINOGEN, URINE AUTO; Value: 0.2; Range: 0.0-2.0; Units: mg/dL; Status: F Test: BILIRUBIN, URINE AUTO; Value: NEGATIVE; Range: NEGATIVE; Status: F Test: NITRITE, URINE AUTO; Value: NEGATIVE; Range: NEGATIVE; Status: F Test: LEUKOCYTE ESTERASE, URINE AUTO; Value: 2+; Range: NEGATIVE; Abnormal: Above high normal; Status: F Test: BLOOD, URINE BLOOD; Value: NEGATIVE; Range: NEGATIVE; Status: F Test: SPERM, URINE AUTO; Range: NONE; Status: I Test: WBC, URINE AUTO; Value: 18; Range: 0-3; Abnormal: Above high normal; Units: /HPF; Status: F Test: RBC, URINE AUTO; Value: 2; Range: 0-3; Units: /HPF; Status: F Test: BACTERIA, URINE AUTO; Value: 2+; Range: NEGATIVE; Abnormal: Above high normal; Status: F Test: SQUAMOUS EPITHELIAL CELL UR AU; Value: 24; Range: 0-6; Units: /HPF; Status: F Test: MUCUS, URINE; Value: SMALL; Range: NEGATIVE; Status: F Test: HYALINE CAST, URINE AUTO; Value: 0; Range: 0-1; Units: /LPF; Status: F Lab Order: Urine Culture; SPEC'M 09/11/16 18:14 Test: URINE CULTURE; Value: <EXTERNAL COMMENT eCWMed> FULL REPORT IN LAB NOTES (eCW and Medent).; Status: F Test: URINE CULTURE; Value: URINE CULTURE RESULT NO GROWTH CLINICAL SIGNIFICANCE 1 ORGANISM; Status: F Lab Order: UCG- In Lab; SPEC'M 09/11/16 18:14 Test: URINE PREG TEST; Value: NEGATIVE; Range: NEGATIVE; Status: F Lab Order: CBC with Diff; SPEC'M 09/11/16 19:36 Test: WHITE BLOOD COUNT; Value: 5.4; Range: 4.0-10.0; Units: K/mm3; Status: F Test: RED BLOOD COUNT; Value: 4.70; Range: 4.00-5.40; Units: M/mm3; Status: F Test: HEMOGLOBIN; Value: 11.7; Range: 12.0-16.0; Abnormal: Below low normal; Units: g/dl; Status: F Test: HEMATOCRIT; Value: 34.9; Range: 36.0-47.0; Abnormal: Below low normal; Units: %; Status: F Test: MEAN CORPUSCULAR VOLUME; Value: 74.3; Range: 80.0-96.0; Abnormal: Below low normal; Units: fl; Status: F Test: MEAN CORPUSCULAR HEMOGLOBIN; Value: 24.8; Range: 27.0-33.0; Abnormal: Below low normal; Units: pg; Status: F Test: MEAN CORPUSCULAR HGB CONC; Value: 33.4; Range: 32.0-36.5; Units: g/dl; Status: F Test: RED CELL DISTRIBUTION WIDTH; Value: 15.2; Range: 11.5-14.5; Abnormal: Above high normal; Units: %; Status: F Test: PLATELET COUNT, AUTOMATED; Value: 204; Range: 150-450; Units: k/mm3; Status: F Test: NEUTROPHILS %; Value: 48.7; Range: 36.0-66.0; Units: %; Status: F Test: LYMPH %; Value: 41.4; Range: 24.0-44.0; Units: %; Status: F Test: MONO %; Value: 4.9; Range: 0.0-5.0; Units: %; Status: F Test: EOS %; Value: 1.9; Range: 0.0-3.0; Units: %; Status: F Test: BASO %; Value: 0.7; Range: 0.0-1.0; Units: %; Status: F Test: LARGE UNSTAINED CELL %; Value: 2.4; Range: 0.0-4.0; Units: %; Status: F Test: NEUTROPHILS #; Value: 2.7; Range: 1.8-7.7; Units: K/mm3; Status: F Test: LYMPH #; Value: 2.3; Range: 1.5-6.5; Units: K/mm3; Status: F Test: MONO #; Value: 0.3; Range: 0.0-0.8; Units: K/mm3; Status: F Test: EOS #; Value: 0.1; Range: 0.0-0.50; Units: K/mm3; Status: F Test: BASO #; Value: 0.0; Range: 0.0-0.2; Units: K/mm3; Status: F Test: LARGE UNSTAINED CELL #; Value: 0.1; Range: 0.0-0.4; Units: K/mm3; Status: F Lab Order: [facility]; SPEC'M 09/11/16 19:36 Test: GLUCOSE, FASTING; Value: 95; Range: 70-105; Units: MG/DL; Status: F Test: BLOOD UREA NITROGEN; Value: 7; Range: 7-18; Units: MG/DL; Status: F Test: CREATININE FOR GFR; Value: 0.66; Range: 0.55-1.02; Units: MG/DL; Status: F Test: GLOMERULAR FILTRATION RATE; Value: > 60.0; Range: >60; Status: F Test: SODIUM LEVEL; Value: 143; Range: 136-145; Units: MEQ/L; Status: F Test: POTASSIUM SERUM; Value: 4.1; Range: 3.5-5.1; Units: MEQ/L; Status: F Test: CHLORIDE LEVEL; Value: 108; Range: 98-107; Abnormal: Above high normal; Units: MEQ/L; Status: F Test: CARBON DIOXIDE LEVEL; Value: 27; Range: 21-32; Units: MEQ/L; Status: F Test: ANION GAP; Value: 8; Range: 8-16; Units: MEQ/L; Status: F Test: CALCIUM LEVEL; Value: 8.7; Range: 8.5-10.1; Units: MG/DL; Status: F Test Note: ; Units are mL/min/1.73 m2 Chronic Kidney Disease Staging per NKF: Stage I & II GFR >=60 Normal to Mildly Decreased Stage III GFR 30-59 Moderately Decreased Stage IV GFR 15-29 Severely Decreased Stage V GFR <15 Very Little GFR Left ESRD GFR <15 on RAP ARTIST Lab Order: Liver Profile; SPEC'M 09/11/16 19:36 Test: AST/SGOT; Value: 11; Range: 15-37; Abnormal: Below low normal; Units: U/L; Status: F Test: ALT/SGPT; Value: 24; Range: 12-78; Units: U/L; Status: F Test: ALKALINE PHOSPHATASE; Value: 76; Range: 45-117; Units: U/L; Status: F Test: BILIRUBIN,TOTAL; Value: 0.2; Range: 0.2-1.0; Units: MG/DL; Status: F Test: BILIRUBIN,DIRECT; Value: < 0.1; Range: 0.0-0.2; Units: MG/DL; Status: F Test: TOTAL PROTEIN; Value: 7.7; Range: 6.4-8.2; Units: GM/DL; Status: F Test: ALBUMIN; Value: 3.6; Range: 3.2-5.2; Units: GM/DL; Status: F Test: ALBUMIN/GLOBULIN RATIO; Value: 0.88; Range: 1.00-1.93; Abnormal: Below low normal; Status: F Lab Order: Lipase; SPEC'M 09/11/16 19:36 Test: LIPASE; Value: 83; Range: 73-393; Units: U/L; Status: F Lab Order: D-Dimer Quant; SPEC'M 09/11/16 19:36 Test: D-DIMER QUANT; Value: < 270.0; Range: <500; Units: ng/ml; Status: F Radiology Order: EKG-ADULT Test: EKG-ADULT REASON FOR EXAMINATION: Chest Pain; Stationary ECG Study; [facility] ED; ; Test Date: 2016-09-11; Pat Name: KEZIA WEBB Department:; Room: -; Gender: F 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; : 1995 Requested By: SAROJ Ryder; Order Number: [id number] Reading MD: Mariza Piedra; Measurements; Intervals Mamou; Rate: 61 P: 15; NV: 144 QRS: 37; QRSD: 111 T: 65; QT: 386; QTc: 390; Interpretive Statements; SINUS RHYTHM; MODERATE INTRAVENTRICULAR CONDUCTION DELAY; NO PRIOR FOR COMPARISON; Electronically Signed On 09-13-2016 6:40:57 EST by Mariza Piedra; Radiology Order: Chest, 2 View (pa\E\lat) Test: Chest, 2 View (pa\E\lat) REASON FOR EXAMINATION: Chest Pain; Clinical: Acute chest pain .; ; Comparison: 09/17/2015 .; ; Technique: PA and lateral.; ; Findings:; The mediastinum and cardiac silhouette are normal. The lung romero are clear and; without acute consolidation, effusion, or pneumothorax. The skeletal structures; are intact and normal.; ; Impression:; 1. No acute cardiopulmonary process.; ; ; Signed by; Michele Ortiz MD 09/12/2016 01:03 A; Radiology Order: Ultrasound Abd Limited Test: Ultrasound Abd Limited REASON FOR EXAMINATION: Biliary Colic; ; Clinical history: Right upper quadrant pain.; Findings: The pancreas is limited in visualization secondary to overlying bowel gas. The liver demons; trates uniform echotexture and echogenicity, with no mass lesions. However, there are two cystic lesi; ons in the left lobe of the liver measuring up to 1.1 cm in diameter each. The right kidney measures; 12.3 x 4.5 I 4.6 cm and is unremarkable. The gallbladder is unremarkable. The common bile duct measur; es 4 mm and is within normal limits. There is no ascites.; Impression: No acute findings.; ; Outcome: 21:52 Discharge ordered by Provider. br1 22:05 Discharge Assessment: patient administered narcotics - yes. Pt provided with safe kas2 discharge. The following High Risk Discharge criteria are identified: None. Discharged to home ambulatory, with friend. Condition: good Condition: stable Condition: improved. Ultrasound Study completed. Property :Personal belongings accompany Pt. 22:07 Patient left the ED. kas2 Signatures: Dispatcher [employer] EDAshli Martins Gloria, Reg Reg Syeda Hugo,RN RN kr3 Nila Booth Lisa,RN RN lf1 Saroj Loo MD MD br1 Cong Douglas, ADVERTISING ANALYST ADVERTISING ANALYST dd6 Gricel Schwartz Kim,RN RN kas2 Corrections: (The following items were deleted from the chart) 21:01 20:58 General: Appears kas2 kas2 Chart Complete MTDD
--- NOTE | 2016-09-13 23:08 | EDDOCDS ---
Physician Documentation [facility] Name: Kezia Butcher Age: 21 yrs Sex: Female : 1995 Arrival Date: 09/11/2016 Time: 17:36 Bed 12 Private MD: NO PRIMARY PHYSICIAN, . Disposition: 09/11/16 21:52 Discharged to Home/Self Care. Impression: Upper abdominal pain, unspecified, Urinary tract infection, site not specified. - Condition is Stable. - Discharge Instructions: Abdominal Pain, Adult, Urinary Tract Infection. - Prescriptions for Macrobid 100 mg Oral Capsule - take 100 milligrams by ORAL route every 12 hours for 7 days; 14 capsule. - Medication Reconciliation, Local Pharmacy Hours form. - Follow up: [facility]; When: 2 - 3 days; Reason: Recheck today's complaints. - Problem is new. - Symptoms have improved. - Notes: You were seen in the ED for upper abdominal pain. Bloodwork showed no acute findings. Ultrasound of the abdomen showed cystic lesions in the liver which will need following and recheck with your primary doctor but no other acute findings at this time. Chest Xray showed no acute findings as well. Urine tests did show bacteria which can be a sign of urinary tract infection. Take the antibiotics as written. test is negative. You will need to see a primary care doctor for ongoing care and recheck - please call the [facility] (see the referral below) and arrange to be seen. Return to the ED for any return of abdominal pain, fever, vomiting, inability to tolerate fluids, chest pain, trouble breathing, lightheadedness, loss of consciousness or any other concerns. Historical: - Allergies: No known drug Allergies; - Home Meds: 1. none - PMHx: none; - PSHx: none; - Social history: Smoking status: Patient states former smoker of tobacco. No barriers to communication noted, The patient speaks fluent Romanian, Speaks appropriately for age, Preferred Language: Romanian. - Family history: Not pertinent. - : The pt / caregiver states he / she is not on anticoagulants. Home medication list is obtained from the patient. - Exposure Risk Screening:: None identified. 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 3 in. (160.02 cm) (R); 19:44 BP 118 / 63 (auto/); kas2 19:44 Pulse 70 MON; Pulse Ox 100% ; kas2 19:55 BP 118 / 60 (auto/); kas2 19:55 Pulse 68 MON; Pulse Ox 100% ; kas2 20:10 BP 109 / 59 (auto/); kas2 20:10 Pulse 68 MON; Pulse Ox 99% ; kas2 20:25 BP 160 / 56 (auto/); kas2 20:25 Pulse 64 MON; Pulse Ox 99% ; kas2 20:40 BP 145 / 58 (auto/); kas2 20:40 Pulse 64 MON; Pulse Ox 99% ; kas2 20:48 BP 148 / 58; Pulse 99; Resp 18; Pulse Ox 99% ; Pain 4/10; kas2 20:55 BP 109 / 55 (auto/); kas2 20:55 Pulse 62 MON; Pulse Ox 99% ; kas2 21:10 BP 110 / 53 (auto/); kas2 21:10 Pulse 66 MON; Pulse Ox 99% ; kas2 21:10 Resp 20; Temp 98.3(O); Pain 0/10; kas2 21:25 BP 107 / 53 (auto/); kas2 21:25 Pulse 70 MON; Pulse Ox 98% ; kas2 21:40 BP 110 / 50 (auto/); kas2 21:40 Pulse 74 MON; Pulse Ox 99% ; kas2 21:55 BP 99 / 53 (auto/); kas2 21:56 Pulse 76 MON; Pulse Ox 98% ; kas2 17:37 Body Mass Index 37.20 (95.25 kg, 160.02 cm) dd6 MDM: 18:03 UA Ordered. EDMS 18:03 Urine Culture Ordered. EDMS 18:03 UCG- In Lab Ordered. EDMS 18:27 UCG- In Lab Reviewed. sd1 18:49 UA Reviewed. sd1 18:49 UCG- In Lab Reviewed. sd1 19:29 IV Saline Lock ordered. br1 19:30 Thread Marker/Pulse Ox/q 30 min VS ordered. br1 19:30 CBC with Diff Ordered. EDMS 19:30 BMP Ordered. EDMS 19:30 Liver Profile Ordered. EDMS 19:30 Lipase Ordered. EDMS 19:30 D-Dimer Quant Ordered. EDMS 19:30 morphine 4 mg IVP once ordered. br1 19:30 Ondansetron 4 mg IVP once ordered. br1 19:30 NS 0.9% 1000 ml IV at 150 mL/hr continuous ordered. br1 19:30 Ultrasound Abd Limited Ordered. EDMS 19:30 Chest, 2 View (pa\E\lat) Ordered. EDMS 19:31 ECG WITH READING ER PHYS+CARDIAG ordered. EDMS 20:23 CBC with Diff Reviewed. br1 20:23 BMP Reviewed. br1 20:23 Liver Profile Reviewed. br1 20:23 Lipase Reviewed. br1 20:23 D-Dimer Quant Reviewed. br1 20:37 Financial registration complete. zo 20:38 [facility] [place] Agreement was scanned into [employer] and attached to record. zo 21:49 Nitrofurantoin 100 mg PO once ordered. br1 09/12 11:27 T-Sheet-- Draft Copy was scanned into [employer] and attached to record. gb 11:27 ECG/EKG was scanned into [employer] and attached to record. gb 11:27 Radiology Report was scanned into [employer] and attached to record. gb Administered Medications: 09/11 19:48 Drug: Ondansetron 4 mg [ondansetron HCl 2 mg/mL intravenous solution (2 mL)] Route: kas2 IVP; Site: right antecubital; 19:48 Drug: NS 0.9% 1000 ml [sodium chloride 0.9 % intravenous solution] Route: IV; Rate: 150 kas2 mL/hr; Site: right antecubital; 19:49 Drug: morphine 4 mg [morphine 4 mg/mL intravenous cartridge (1 mL)] Route: IVP; Site: kas2 right antecubital; 20:48 Follow up: BP 148 / 58; Pulse 99 bpm; Resp 18 bpm; Pulse Ox 99% ; Pain 4/10 Adult; kas2 Response: No Adverse Reaction; Pain is decreased 21:54 Drug: Nitrofurantoin 100 mg [nitrofurantoin macrocrystal 50 mg capsule (2 caps)] Route: kas2 PO; Signatures: Dispatcher [employer] EDMS Dorothea Mariza, MD MD sd1 Bianca Cantu, Reg Reg gb Nila Booth Lisa, RN RN lf1 Saroj Loo MD MD br1 Maria Esther Stewart RN RN kas2 The chart was reviewed and I authenticate all verbal orders and agree with the evaluation and treatment provided.Attachments: 20:38 [facility] Payment Agreement zo 09/12 11:27 T-Sheet-- Draft Copy gb 11:27 ECG/EKG gb Chart Complete MTDD
== END 2016-09-11 22:07 | disposition home or self-care (01) ==
LOC: M ED 17:36
DX: R10.10 Upper abdominal pain, unspecified (principal); N39.0 Urinary tract infection, site not specified; Z87.890 Personal history of sex reassignment
CPT/HCPCS: 36415; 71020; 76705; 80048; 80076; 81001; 83690; 84703; 85025; 85379; 87086; 93005; 93041; 96374; 96375; 99285; J2405

== ENCOUNTER 2017-02-13 20:13 | Emergency (ER) | payer OTHER ==
[~2017-02-13] VITALS: Ht 160 cm; Wt 101.4 kg
[~2017-02-13 20:13] MED LIST changes: -PRENTAB13 PO; +PRENTAB20 PO
[2017-02-13 21:13] LABS: BASO # 0.1 K/mm3 (0.0-0.2); BASO % 0.8 % (0.0-1.0); EOS # 0.2 K/mm3 (0.0-0.50); EOS % 2.3 % (0.0-3.0); LARGE UNSTAINED CELL # 0.2 K/mm3 (0.0-0.4); LYMPH # 2.7 K/mm3 (1.5-6.5); LYMPH % 37.4 % (24.0-44.0); MEAN CORPUSCULAR HEMOGLOBIN 24.4 pg (27.0-33.0); MEAN CORPUSCULAR HGB CONC 32.3 g/dl (32.0-36.5); MEAN CORPUSCULAR VOLUME 75.7 fl (80.0-96.0); MONO # 0.3 K/mm3 (0.0-0.8); MONO % 4.6 % (0.0-5.0); NEUTROPHILS # 3.8 K/mm3 (1.8-7.7); NEUTROPHILS % 52.8 % (36.0-66.0); PLATELET COUNT, AUTOMATED 242 k/mm3 (150-450); RED CELL DISTRIBUTION WIDTH 15.5 % (11.5-14.5); WHITE BLOOD COUNT 7.1 K/mm3 (4.0-10.0)
[2017-02-13 21:14] LABS: ABG BASE EXCESS 0.9 (-2.0-2.0); ABG HCO3 23.2 MEQ/L (22.0-26.0); ABG STANDARD HCO3 25.3 MEQ/L (22.0-26.0); ABG TOTAL CO2 24.2 MEQ/L (22.0-29.0); ABG pH (ARTERIAL) 7.507 UNITS (7.350-7.450)
[2017-02-13 21:39] LABS: ALBUMIN 3.7 GM/DL (3.2-5.2); ALBUMIN/GLOBULIN RATIO 0.97 (1.00-1.93); ALKALINE PHOSPHATASE 88 U/L (45-117); ALT/SGPT 25 U/L (12-78); ANION GAP 4 MEQ/L (8-16); AST/SGOT 13 U/L (15-37); BILIRUBIN,DIRECT < 0.1 MG/DL (0.0-0.2); BILIRUBIN,TOTAL 0.2 MG/DL (0.2-1.0); BLOOD UREA NITROGEN 10 MG/DL (7-18); CALCIUM LEVEL 8.6 MG/DL (8.5-10.1); CARBON DIOXIDE LEVEL 29 MEQ/L (21-32); CHLORIDE LEVEL 107 MEQ/L (98-107); CREATININE FOR GFR 0.67 MG/DL (0.55-1.02); GLOMERULAR FILTRATION RATE > 60.0 (>60); GLUCOSE, FASTING 95 MG/DL (70-105); POTASSIUM SERUM 4.6 MEQ/L (3.5-5.1); SODIUM LEVEL 140 MEQ/L (136-145); T UPTAKE 33 % (30-39); THYROXINE (T4) 10.2 UG/DL (4.5-12.0); TOTAL PROTEIN 7.5 GM/DL (6.4-8.2)
[2017-02-13 21:46] LABS: CONTROL LINE HCG INT CTR LINE PRESENT
[2017-02-13 21:58] LABS: METHADONE URINE NEGATIVE (NEGATIVE)
--- NOTE | 2017-02-13 22:17 | REP ---
Clinical: Headaches . Comparison: 10/31/2011 . Findings: The ventricles, sulci, and cisterns are normal in position and appearance. Macdonald-white differentiation is maintained. No acute intracranial hemorrhage, mass/mass effect, pathology or trauma/injury. No evidence for acute infarction. No extra-axial fluid collection. Calvarium is intact. Paranasal sinuses and mastoid air cells are clear. Impression: Normal noncontrast head CT. No evidence for acute intracranial pathology or trauma/injury. Signed by Michele Ortiz MD 02/13/2017 10:08 P
[2017-02-13 23:00] VITALS: BP 112/55
== END 2017-02-13 23:16 | disposition home or self-care (01) ==
LOC: M ED 20:13
DX: F44.9 Dissociative and conversion disorder, unspecified (principal); Z87.891 Personal history of nicotine dependence; Z79.899 Other long term (current) drug therapy

== ENCOUNTER 2017-07-12 19:53 | Emergency (ER) | payer OTHER ==
[~2017-07-12] VITALS: Ht 160 cm; Wt 98.7 kg
[2017-07-12 20:18] VITALS: BP 120/74
[2017-07-12 22:07] LABS: CONTROL LINE UCG INT CTR LINE PRESENT
[2017-07-12] MEDS ORDERED: PYRI1TAB5 PO (22:39)
[2017-07-12] MEDS ORDERED: BACT800T5 PO (22:39)
[2017-07-12] MEDS ORDERED: PHENAZOPYRIDINE 100 MG TAB PO ONE (22:45)
[2017-07-12] MEDS ORDERED: BACTRIM 160MG/800MG DS TAB PO ONE (22:45)
== END 2017-07-12 23:00 | disposition home or self-care (01) ==
LOC: M ED 19:53
DX: N30.00 Acute cystitis without hematuria (principal)

== ENCOUNTER → 2017-08-22 | Outpatient (REF) | payer OTHER ==
[2017-08-22 14:52] LABS: ALBUMIN 4.2 GM/DL (3.2-5.2); ALBUMIN/GLOBULIN RATIO 1.05 (1.00-1.93); ALKALINE PHOSPHATASE 83 U/L (45-117); ALT/SGPT 27 U/L (12-78); ANION GAP 8 MEQ/L (8-16); AST/SGOT 20 U/L (7-37); BILIRUBIN,TOTAL 0.3 MG/DL (0.2-1.0); BLOOD UREA NITROGEN 8 MG/DL (7-18); CALCIUM LEVEL 9.2 MG/DL (8.5-10.1); CARBON DIOXIDE LEVEL 27 MEQ/L (21-32); CHLORIDE LEVEL 106 MEQ/L (98-107); CHOLESTEROL LEVEL 97 MG/DL (<200); CHOLESTEROL RISK RATIO 2.487 (<5); CREATININE FOR GFR 0.56 MG/DL (0.55-1.02); GLOMERULAR FILTRATION RATE > 60.0 (>60); GLUCOSE, FASTING 89 MG/DL (70-105); HDL CHOLESTEROL 39 MG/DL (>40); LDL CHOLESTEROL 44.8 MG/DL (<100); NON-HDL-C 58 MG/DL; POTASSIUM SERUM 3.9 MEQ/L (3.5-5.1); SODIUM LEVEL 141 MEQ/L (136-145); TOTAL PROTEIN 8.2 GM/DL (6.4-8.2); TRIGLYCERIDES LEVEL 66 MG/DL (<150)
== END ==
LOC: M LAB REF 13:37
DX: Z00.00 Encounter for general adult medical examination without abnormal findings (principal)

== ENCOUNTER 2018-01-02 20:31 | Emergency (ER) | payer MEDICAID, SELFPAY, OTHER ==
[2018-01-02] MEDS: ONDANSETRON 4MG/2ML VIAL (J2405) IV ×3 (21:43)
[2018-01-02] MEDS: NS 1,000 ML IV ×3 (21:43)
[2018-01-02 21:46] LABS: BASO % 0.4 % (0.0-1.0); EOS % 0.3 % (0.0-3.0); HEMATOCRIT 39.1 % (36.0-47.0); HEMOGLOBIN 12.6 g/dl (12.0-15.5); IMMATURE GRANULOCYTE % 0.3 % (0-3.0); LYMPH # 2.3 10^3/uL (1.5-6.5); LYMPH % 20.1 % (24.0-44.0); MEAN CORPUSCULAR HEMOGLOBIN 25.5 pg (27.0-33.0); MEAN CORPUSCULAR HGB CONC 32.2 g/dl (32.0-36.5); MEAN CORPUSCULAR VOLUME 79.1 fl (80.0-96.0); MONO # 0.6 10^3/uL (0.0-0.8); MONO % 5.3 % (0.0-5.0); NEUTROPHILS # 8.4 10^3/uL (1.8-7.7); NEUTROPHILS % 73.6 % (36.0-66.0); PLATELET COUNT, AUTOMATED 254 10^3/uL (150-450); RED BLOOD COUNT 4.94 10^6/uL (4.00-5.40); RED CELL DISTRIBUTION WIDTH 14.8 % (11.5-14.5); WHITE BLOOD COUNT 11.4 10^3/uL (4.0-10.0)
[2018-01-02 22:02] LABS: CONTROL LINE HCG INT CTR LINE PRESENT; HCG, SERUM QUALITATIVE NEGATIVE (NEGATIVE)
[2018-01-02 22:11] LABS: ALBUMIN 3.9 GM/DL (3.2-5.2); ALBUMIN/GLOBULIN RATIO 0.93 (1.00-1.93); ALKALINE PHOSPHATASE 67 U/L (45-117); ALT/SGPT 22 U/L (12-78); ANION GAP 6 MEQ/L (8-16); AST/SGOT 42 U/L (7-37); BILIRUBIN,DIRECT < 0.1 MG/DL (0.0-0.2); BILIRUBIN,TOTAL 0.4 MG/DL (0.2-1.0); BLOOD UREA NITROGEN 7 MG/DL (7-18); CALCIUM LEVEL 8.8 MG/DL (8.5-10.1); CARBON DIOXIDE LEVEL 25 MEQ/L (21-32); CHLORIDE LEVEL 107 MEQ/L (98-107); CREATININE FOR GFR 0.59 MG/DL (0.55-1.30); GLOMERULAR FILTRATION RATE > 60.0 (>60); GLUCOSE, FASTING 95 MG/DL (70-100); LIPASE 48 U/L (73-393); SODIUM LEVEL 138 MEQ/L (136-145); TOTAL PROTEIN 8.1 GM/DL (6.4-8.2)
== END 2018-01-02 23:11 | disposition home or self-care (01) ==
LOC: M ED 20:31
DX: R11.2 Nausea with vomiting, unspecified (principal); R19.7 Diarrhea, unspecified; Z87.891 Personal history of nicotine dependence
CPT/HCPCS: J2405

== ENCOUNTER 2018-07-16 19:52 | Emergency (ER) | payer OTHER, MEDICAID ==
[2018-07-16] MEDS: ONDANSETRON 4 MG ORAL DISINTEGRATING TAB (Q0162 PER 1MG) PO (21:10)
[2018-07-16] MEDS: ACETAMINOPHEN 325 MG TAB PO (21:10)
[2018-07-16 21:23] LABS: BASO # 0.1 10^3/uL (0.0-0.2); BASO % 0.5 % (0.0-1.0); EOS # 0.3 10^3/uL (0.0-0.50); EOS % 2.7 % (0.0-3.0); HEMOGLOBIN 12.7 g/dl (12.0-15.5); IMMATURE GRANULOCYTE % 0.3 % (0-3.0); LYMPH # 3.3 10^3/uL (1.5-6.5); LYMPH % 32.7 % (24.0-44.0); MEAN CORPUSCULAR HGB CONC 32.6 g/dl (32.0-36.5); MEAN CORPUSCULAR VOLUME 76.6 fl (80.0-96.0); MONO # 0.8 10^3/uL (0.0-0.8); MONO % 7.7 % (0.0-5.0); NEUTROPHILS # 5.7 10^3/uL (1.8-7.7); NEUTROPHILS % 56.1 % (36.0-66.0); PLATELET COUNT, AUTOMATED 262 10^3/uL (150-450); RED BLOOD COUNT 5.09 10^6/uL (4.00-5.40); RED CELL DISTRIBUTION WIDTH 14.3 % (11.5-14.5); WHITE BLOOD COUNT 10.1 10^3/uL (4.0-10.0)
[2018-07-16 21:53] LABS: ALBUMIN 3.9 GM/DL (3.2-5.2); ALBUMIN/GLOBULIN RATIO 0.95 (1.00-1.93); ALKALINE PHOSPHATASE 87 U/L (45-117); ALT/SGPT 23 U/L (12-78); ANION GAP 8 MEQ/L (8-16); AST/SGOT 12 U/L (7-37); BILIRUBIN,DIRECT < 0.1 MG/DL (0.0-0.2); BILIRUBIN,TOTAL 0.1 MG/DL (0.2-1.0); BLOOD UREA NITROGEN 12 MG/DL (7-18); CALCIUM LEVEL 8.7 MG/DL (8.5-10.1); CARBON DIOXIDE LEVEL 24 MEQ/L (21-32); CHLORIDE LEVEL 107 MEQ/L (98-107); CREATININE FOR GFR 0.62 MG/DL (0.55-1.30); GLOMERULAR FILTRATION RATE > 60.0 (>60); GLUCOSE, FASTING 97 MG/DL (70-100); HCG, SERUM QUANTITATIVE 27 MIU/ML; LIPASE 76 U/L (73-393); POTASSIUM SERUM 3.8 MEQ/L (3.5-5.1); SODIUM LEVEL 139 MEQ/L (136-145)
[2018-07-16 22:20] LABS: AMORPHOUS SEDIMENT RFX SMALL (NEGATIVE); KETONE, URINE AUTO RFX NEGATIVE (NEGATIVE); LEUKOCYTE ESTERASE UR AUTO RFX 2+ (NEGATIVE); MUCUS, URINE RFX SMALL (NEGATIVE); NITRITE, URINE AUTO RFX NEGATIVE (NEGATIVE); RBC, URINE AUTO RFX 17 /HPF (0-3); SPECIFIC GRAVITY UR AUTO RFX 1.024 (1.002-1.035); SQUAM EPITHELIAL CELL UR AURFX 1 /HPF (0-6); WBC, URINE AUTO RFX 28 /HPF (0-3)
[2018-07-16] MEDS: NITROFURANTOIN (MACROBID) 100 MG CAP PO (22:41)
== END 2018-07-16 22:47 | disposition home or self-care (01) ==
LOC: M ED 19:52
DX: R11.2 Nausea with vomiting, unspecified (principal); N30.00 Acute cystitis without hematuria; Z32.01 Encounter for pregnancy test, result positive; M79.89 Other specified soft tissue disorders
CPT/HCPCS: Q0162

== ENCOUNTER → 2018-08-20 | Outpatient (CLI) | payer OTHER ==
[~2018-08-20] MED LIST changes: -ACET50TA PO; +BACT800T5 PO; +MACR100C43 PO; +MAPA500T2 PO; +PYRI1TAB5 PO; +ZOFR4TAB14 PO; -ZOFR8TAB PO; +ZOFR8TAB24 PO
[2018-08-20 13:43] LABS: BASO % 0.6 % (0.0-1.0); EOS # 0.1 10^3/uL (0.0-0.50); EOS % 2.2 % (0.0-3.0); HEMOGLOBIN 12.4 g/dl (12.0-15.5); LYMPH # 1.8 10^3/uL (1.5-6.5); LYMPH % 28.2 % (24.0-44.0); MEAN CORPUSCULAR HEMOGLOBIN 25.1 pg (27.0-33.0); MEAN CORPUSCULAR HGB CONC 32.6 g/dl (32.0-36.5); MEAN CORPUSCULAR VOLUME 76.8 fl (80.0-96.0); MONO # 0.4 10^3/uL (0.0-0.8); MONO % 6.9 % (0.0-5.0); NEUTROPHILS % 61.9 % (36.0-66.0); PLATELET COUNT, AUTOMATED 235 10^3/uL (150-450); RED BLOOD COUNT 4.95 10^6/uL (4.00-5.40); WHITE BLOOD COUNT 6.4 10^3/uL (4.0-10.0)
[2018-08-20 13:48] LABS: GLUCOSE CHALLENGE TEST 1 HOUR 106 MG/DL (LESS THAN 140)
[2018-08-20 14:13] LABS: RUBELLA IgG QUALITATIVE IMMUNE (IMMUNE)
[2018-08-20 14:41] LABS: HEPATITIS C VIRUS ABY INDEX 0.1 INDEX (<0.8)
[2018-08-20 14:42] LABS: HIV 1&2 SCREEN CENTAUR NEGATIVE (NEGATIVE)
[2018-08-20 15:01] LABS: CHLAMYDIA DNA AMPLIFICATION NEGATIVE (NEGATIVE); GC DNA AMPLIFICATION NEGATIVE (NEGATIVE)
[2018-08-20 15:35] LABS: HEMOGLOBIN A1c 5.2 %
== END ==
LOC: M SMT 08:33
PROVIDERS: ATTEND Advanced Practice Midwife
DX: Z36.89 Encounter for other specified antenatal screening (principal)

== ENCOUNTER → 2018-10-23 | Outpatient (CLI) | payer OTHER ==
[~2018-10-23] MED LIST changes: +FLUO5OI PO; +KEFL500C17 PO; +PRENTAB77 PO
--- NOTE | 2018-10-23 18:16 | REP ---
Clinical: Anatomical evaluation. Comparison: None . Findings: Examination demonstrates a single live intrauterine in cephalic presentation. motion is identified by technologist. Placenta is noted anterior and grade 1 without evidence for placenta previa or abruption. Amniotic fluid volume is normal. Cervix measures 4.0 cm in length and appears closed. No evidence for nuchal cord. Gestational age by current measurements 18 weeks 0 days with ANIL 03/26/2019 . FHR equals 136 beats per minute. BPD 4.2 cm 18 weeks 5 days HC 14.9 cm 18 weeks 0 day AC 12.0 cm 17 weeks 5 days FL 2.7 cm 18 weeks 1 day HL 2.6 cm 18 weeks 1 day HC/AC ratio 1.24 Estimated weight 216 grams ( 42nd percentile). Anatomical assessment demonstrates normal structures including cranium, choroid plexus, cavum, cerebellum/posterior fossa, lungs, diaphragm, stomach, three-vessel cord, kidneys/bladder, spine, and extremities. Impression: 1. Single live intrauterine in cephalic presentation. 2. Limited evaluation of facial features, heart/ventricular outflow tracts, and cord insertion due to positioning. Remainder of the anatomical assessment is complete and normal. Electronically Signed by Michele Ortiz MD 10/23/2018 06:07 P
== END ==
LOC: M SMT 08:26
PROVIDERS: ATTEND Advanced Practice Midwife
DX: Z34.82 Encounter for supervision of other normal pregnancy, second trimester (principal); Z36.89 Encounter for other specified antenatal screening; Z3A.18 18 weeks gestation of pregnancy

== ENCOUNTER 2018-10-28 18:26 | Emergency (ER) | payer OTHER ==
[~2018-10-28] VITALS: Ht 160 cm; Wt 99.9 kg
[~2018-10-28 18:26] MED LIST changes: -FLUO5OI PO; -KEFL500C17 PO; -PRENTAB77 PO
[2018-10-28] MEDS ORDERED: FLUO5OI PO (18:41)
[2018-10-28] MEDS ORDERED: PRENTAB77 PO (18:41)
[2018-10-28] MEDS ORDERED: PERCOCET 5MG/325MG TAB PO ONE (19:30)
--- NOTE | 2018-10-28 20:22 | REPVR ---
EXAM: US , Limited EXAM DATE/TIME: 10/28/2018 7:45 PM CLINICAL HISTORY: 23 years old, female; Pain; complicated by abdominal or pelvic pain; Other: Back; Gestational age or lmp: 18 w5; ; Additional info: Fell/19 wks preg TECHNIQUE: Real-time ultrasound of the maternal uterus with image documentation. Exam focused on the clinical indication. COMPARISON: US OBS SINGLE GEST 10/23/2018 8:40 AM FINDINGS: GESTATION: Gestation: Intrauterine gestation. Heart rate: heart rate 139 beats per minute. Presentation: Cephalic presentation. Placenta: Anterior placenta without previa. Amniotic fluid: Amniotic fluid volume index 11.6 centimeters. BIOMETRY: Estimated gestational age: Gestational age 18 weeks 5 days using ultrasound measurements. ANIL 03/26/2019 MATERNAL: Cervix: Cervix measures 4 point 2 centimeters. IMPRESSION: Unremarkable survey in this 18 week 5 day gestation . Electronically signed by: Serjio Wolfe On 10/28/2018 20:21:57 PM
[2018-10-28] MEDS ORDERED: KEFL500C17 PO (20:31)
[2018-10-28 20:37] VITALS: BP 122/56
== END 2018-10-28 20:38 | disposition home or self-care (01) ==
LOC: M ED 18:26
DX: O9A.211 Injury, poisoning and certain other consequences of external causes complicating pregnancy, first trimester (principal); S30.0XXA Contusion of lower back and pelvis, initial encounter; W00.0XXA Fall on same level due to ice and snow, initial encounter; Y92.89 Other specified places as the place of occurrence of the external cause; B96.89 Other specified bacterial agents as the cause of diseases classified elsewhere; Z3A.18 18 weeks gestation of pregnancy

== ENCOUNTER 2018-11-08 19:28 | Emergency (ER) | payer OTHER ==
[~2018-11-08] VITALS: Ht 160 cm; Wt 99.6 kg
[2018-11-08 19:28] VITALS: BP 131/64
[~2018-11-08 19:28] MED LIST changes: +FLUO5OI PO; +IBUP600T42 PO; -IBUP60TA PO; +KEFL500C17 PO; +PRENTAB77 PO
[2018-11-08] MEDS ORDERED: ACETAMINOPHEN 500 MG TAB PO ONE (20:00)
[2018-11-08 20:43] LABS: INFLUENZA A AMPLIFICATION POSITIVE (NEGATIVE); INFLUENZA B AMPLIFICATION NEGATIVE (NEGATIVE)
[2018-11-08] MEDS ORDERED: OSEL75CA2 PO (20:51)
[2018-11-08] MEDS ORDERED: OSELTAMIVIR PHOSPHATE 75 MG CAP (TAMIFLU) PO ONE (21:00)
== END 2018-11-08 21:00 | disposition home or self-care (01) ==
LOC: M ED 19:28
DX: J09.X2 Influenza due to identified novel influenza A virus with other respiratory manifestations (principal)

== ENCOUNTER → 2018-11-19 | Outpatient (CLI) | payer OTHER ==
[~2018-11-19] MED LIST changes: +OSEL75CA2 PO
--- NOTE | 2018-11-19 13:43 | REP ---
Obstetric sonography: History: Supervision of . Followup anatomy. Facial features, heart with outflow tract views, abdominal wall cord insertion. Findings: Scanning through the gravid uterus demonstrates a viable single intrauterine gestation in a footling breech lie. motion is observed and heart rate is recorded at 147 beats per minute. An anterior grade 1 placenta is seen without evidence of previa. Amniotic fluid is subjectively normal. Closed cervical length is measured at 4.7 cm, viewed transabdominally. No extrauterine abnormality is observed. There has been appropriate interval growth. No anomaly is seen. The following anatomic structures are identified and felt to be sonographically unremarkable: cranium, choroid plexus, cavum, cerebellum and posterior fossa, face and profile, lungs, four-chamber heart with left and right ventricular outflow tract views, diaphragm, left-sided stomach, abdominal wall cord insertion, three-vessel umbilical cord, kidneys and bladder, spine, upper and lower extremities. Biometry chart: BPD 5.0 cm = 21 weeks 1 day Head circumference 19.1 cm = 21 weeks 3 days Abdominal circumference 16.8 cm = 21 weeks 6 days Femur length 3.7 cm = 21 weeks 4 days Humeral length 3.4 cm = 21 weeks 3 days Cerebellar diameter 2.1 cm = 20 weeks 1 day HC/AC ratio normal 1.14. Cephalic index normal 0.71. Estimated weight 440 grams, 0 pounds 15 ounces, 38th percentile for 21 weeks 6 days. Impression: Viable single intrauterine gestation at 21 weeks 2 days by today's composite sonographic criteria. anatomic survey is felt to be complete. Expected gestational age estimate based on prior sonography is 21 weeks 6 days. ANIL by prior sonography March 26, 2019. There has been appropriate interval growth. Electronically Signed by Rico Shields MD 11/19/2018 02:56 P
== END ==
LOC: M SMT 11:11
PROVIDERS: ATTEND Advanced Practice Midwife
DX: Z34.80 Encounter for supervision of other normal pregnancy, unspecified trimester (principal)

== ENCOUNTER 2018-12-15 17:29 | Emergency (ER) | payer OTHER ==
[~2018-12-15] VITALS: Ht 160 cm; Wt 103.0 kg
[2018-12-15 17:30] VITALS: BP 125/59
== END 2018-12-15 18:14 | disposition admitted as inpatient to this hospital (09) ==
LOC: M ED 17:29
DX: O99.89 Other specified diseases and conditions complicating pregnancy, childbirth and the puerperium (principal); Z3A.26 26 weeks gestation of pregnancy; R10.9 Unspecified abdominal pain; O20.0 Threatened abortion

== ENCOUNTER 2018-12-15 18:17 | Outpatient (CLI) | payer OTHER ==
[~2018-12-15] VITALS: Ht 160 cm; Wt 103.0 kg
[2018-12-15 18:43] VITALS: BP 111/64
[2018-12-15 19:30] LABS: APPEARANCE, URINE CLOUDY (CLEAR); BACTERIA, URINE AUTO 1+ (NEGATIVE); BILIRUBIN, URINE AUTO NEGATIVE (NEGATIVE); BLOOD, URINE BLOOD 2+ (NEGATIVE); COLOR, URINE YELLOW (YELLOW); GLUCOSE, URINE (UA) AUTO NEGATIVE (NEGATIVE); KETONE, URINE AUTO NEGATIVE (NEGATIVE); LEUKOCYTE ESTERASE, URINE AUTO 3+ (NEGATIVE); MUCUS, URINE SMALL (NEGATIVE); NITRITE, URINE AUTO NEGATIVE (NEGATIVE); PROTEIN, URINE AUTO NEGATIVE (NEGATIVE); RBC, URINE AUTO 56 /HPF (0-3); SQUAMOUS EPITHELIAL CELL UR AU 5 /HPF (0-6); UROBILINOGEN, URINE AUTO 0.2 mg/dL (0.0-2.0); WBC, URINE AUTO 87 /HPF (0-3)
[2018-12-15 20:09] VITALS: BP 137/65
--- NOTE | 2018-12-15 20:37 | REPVR ---
EXAM: US After First Trimester, Transabdominal EXAM DATE/TIME: 12/15/2018 7:56 PM CLINICAL HISTORY: 23 years old, female; complicated by abdominal or pelvic pain; Right lower quadrant; Second trimester; Gestational age or lmp: 25w 4d; ; Additional info: Pelvic pain- right sided sharp pain-26 weeks TECHNIQUE: Imaging protocol: Real-time transabdominal obstetrical ultrasound of the maternal pelvis and a second or third trimester with image documentation. COMPARISON: US OBS FOLL UP OR REPEAT EACH GES 11/19/2018 11:26 AM FINDINGS: GESTATION: Gestation: Single intrauterine fetus. Heart rate: heartbeat of 141 beats per minute. Presentation: Cephalic presentation. Placenta: Anterior placenta without previa or abruption. Amniotic fluid: The amount of amniotic fluid is visually within normal limits. Anatomy: The visualized extremities, bladder, stomach, cranial structures, facial structures, spine, RVOT, LVOT, 4 chamber heart, cord and kidneys are normal. BIOMETRY: Estimated gestational age: The composite gestational age by ultrasound is 25 weeks 0 days. Estimated due date: The EDC is 03/30/2019. Estimated weight: The estimated weight is 762 grams and is 48%. Biparietal diameter: The BPD measures 6.1 cm suggesting an age of 24 weeks 6 days. Head circumference: The head circumference measures 22.6 cm suggesting an age of 24 weeks 5 days. Abdominal circumference: The abdominal circumference measures 20.7 cm suggesting an age of 25 weeks 2 days. Femur length: The femur length measures 4.5 cm suggesting an age of 24 weeks 6 days. MATERNAL: Uterus: Unremarkable. Cervix: The cervix is closed and measures 4.0 cm. IMPRESSION: Single live intrauterine fetus in cephalic presentation with a composite age of 25 weeks 0 days. The EDC is 03/30/2019. Electronically signed by: Keshawn Silveira On 12/15/2018 20:37:03 PM
--- NOTE | 2018-12-15 21:47 | IPNPDOC ---
Text Note Date of Service The patient was seen on 12/15/18. NOTE Subjective: Patient is a 23-year-old female who is a at 26 weeks gestation with an ANIL of 03/23/19 based off of her LMP and consistent with her 1st trimester ultrasound. She initiated care in her first trimester at [facility]. Her has been complicated by depression, which she was started on Zoloft for. She presents to L&D with complaints of intermittent pain that started this morning in her RLQ and occasionally in her LLQ. It started to get worse tonight at 1630. She reports her pain to be an 8/10. She has not tried anything for her pain. She denies vaginal bleeding, leaking of fluid, or contractions. She reports active movement. Medical history: depression-taking Zoloft daily Surgical history: none Family history: non-contributory Social history: , former smoker. Denies history of abuse-physical, emotional, sexual. Denies use of drug or alcohol abuse. Denies any history of STDs. Objective: labs, vital signs, and ultrasound. See below. FHR: 130, moderate variability, positive accelerations, no decelerations. Contractions: none. A+O x3. Respiratory rate is regular with no use of accessory muscles. Abdomen: gr avid, soft with palpation and slight tenderness with palpation in right lower quadrant. Assessment: IUP at 26 weeks gestation, urinary tract infection Plan: Patient discharged to home with her . Script sent to pharmacy for Keflex to be taken every 6 hours for 7 days. She has an appointment tomorrow with Dr. Torrez and was encouraged to keep her appointment. Reviewed access to care, kick count, labor signs, or danger signs to report. A-FIB/CHADSVASC A-FIB History Current/History of A-Fib/PAF?: No Current Oral Anticoagulant The: No VS,Fishbone, I+O VS, Fishbone, I+O Vital Signs Date Time Temp Pulse Resp B/P (MAP) Pulse Ox O2 Delivery O2 Flow Rate FiO2 12/15/18 20:09 98.6 88 137/65 (89) 12/15/18 18:43 20 Item Value Date Time Urine Color YELLOW 12/15/181899 Urine Appearance CLOUDY H 12/15/181899 Urine pH 6.0 UNITS 12/15/181899 Urine Specific [place] 1.020 12/15/181899 Urine Protein NEGATIVE mg/dL 12/15/181899 Urine Glucose (UA) NEGATIVE mg/dL 12/15/181899 Urine Ketones NEGATIVE mg/dL 12/15/181899 Urine Blood 2+ H 12/15/181899 Urine Nitrite NEGATIVE 12/15/181899 Urine Bilirubin NEGATIVE 12/15/181899 Urine Urobilinogen 0.2 mg/dL 12/15/181899 Urine Leukocyte Esterase 3+ H 12/15/181899 Urine WBC (Auto) 87 /HPF H 12/15/181899 Urine RBC (Auto) 56 /HPF H 12/15/181899 Urine Hyaline Casts (Auto) 0 /LPF 12/15/181899 Urine Bacteria (Auto) 1+ H 12/15/181899 Urine Squamous Epithelial Cells 5 /HPF 12/15/181899 Urine Mucus (Auto) SMALL 12/15/181899 EXAM DATE/TIME: 12/15/2018 7:56 PM CLINICAL HISTORY: 23 years old, female; complicated by abdominal or pelvic pain; Right lower quadrant; Second trimester; Gestational age or lmp: 25w 4d; ; Additional info: Pelvic pain- right sided sharp pain-26 weeks TECHNIQUE: Imaging protocol: Real-time transabdominal obstetrical ultrasound of the maternal pelvis and a second or third trimester with image documentation. COMPARISON: US OBS FOLL UP OR REPEAT EACH GES 11/19/2018 11:26 AM FINDINGS: GESTATION: Gestation: Single intrauterine fetus. Heart rate: heartbeat of 141 beats per minute. Presentation: Cephalic presentation. Placenta: Anterior placenta without previa or abruption. Amniotic fluid: The amount of amniotic fluid is visually within normal limits. Anatomy: The visualized extremities, bladder, stomach, cranial structures, facial structures, spine, RVOT, LVOT, 4 chamber heart, cord and kidneys are normal. BIOMETRY: Estimated gestational age: The composite gestational age by ultrasound is 25 weeks 0 days. Estimated due date: The EDC is 03/30/2019. Estimated weight: The estimated weight is 762 grams and is 48%. Biparietal diameter: The BPD measures 6.1 cm suggesting an age of 24 weeks 6 days. Head circumference: The head circumference measures 22.6 cm suggesting an age of 24 weeks 5 days. Abdominal circumference: The abdominal circumference measures 20.7 cm suggesting an age of 25 weeks 2 days. Femur length: The femur length measures 4.5 cm suggesting an age of 24 weeks 6 days. MATERNAL: Uterus: Unremarkable. Cervix: The cervix is closed and measures 4.0 cm. IMPRESSION: Single live intrauterine fetus in cephalic presentation with a composite age of 25 weeks 0 days. The EDC is 03/30/2019. Electronically signed by: Keshawn Silveira On 12/15/2018 20:37:03 PM ROMA ALBA CNM Dec 15, 2018 21:47
== END 2018-12-15 20:13 | disposition home or self-care (01) ==
LOC: M LDO 18:17
PROVIDERS: ATTEND Advanced Practice Midwife
DX: O26.892 Other specified pregnancy related conditions, second trimester (principal); Z3A.26 26 weeks gestation of pregnancy; R10.31 Right lower quadrant pain; O23.42 Unspecified infection of urinary tract in pregnancy, second trimester

== ENCOUNTER → 2018-12-17 | Outpatient (CLI) | payer OTHER ==
[2018-12-17 12:24] LABS: BASO % 0.3 % (0.0-1.0); EOS # 0.1 10^3/uL (0.0-0.50); EOS % 1.6 % (0.0-3.0); HEMATOCRIT 32.1 % (36.0-47.0); HEMOGLOBIN 10.6 g/dl (12.0-15.5); LYMPH % 26.3 % (24.0-44.0); MEAN CORPUSCULAR HEMOGLOBIN 26.4 pg (27.0-33.0); MEAN CORPUSCULAR VOLUME 79.9 fl (80.0-96.0); MONO # 0.5 10^3/uL (0.0-0.8); MONO % 6.1 % (0.0-5.0); NEUTROPHILS % 65.4 % (36.0-66.0); PLATELET COUNT, AUTOMATED 212 10^3/uL (150-450); RED BLOOD COUNT 4.02 10^6/uL (4.00-5.40); WHITE BLOOD COUNT 7.7 10^3/uL (4.0-10.0)
== END ==
LOC: M LAB 10:54
PROVIDERS: ATTEND Specialist
DX: Z34.82 Encounter for supervision of other normal pregnancy, second trimester (principal); Z3A.00 Weeks of gestation of pregnancy not specified

== ENCOUNTER 2019-02-22 11:49 | Outpatient (CLI) | payer OTHER ==
[~2019-02-22] VITALS: Ht 160 cm; Wt 105.7 kg
[2019-02-22 12:02] VITALS: BP 114/56
[2019-02-22] MEDS ORDERED: ZOLO50TA PO (12:08)
== END 2019-02-22 13:43 | disposition home or self-care (01) ==
LOC: M LDO 11:49
PROVIDERS: ATTEND Specialist
DX: O36.8130 Decreased fetal movements, third trimester, not applicable or unspecified (principal); Z3A.36 36 weeks gestation of pregnancy

== ENCOUNTER → 2019-02-25 | Outpatient (CLI) | payer OTHER ==
[~2019-02-25] MED LIST changes: +ZOLO50TA PO
== END ==
LOC: M SMT 13:50
PROVIDERS: ATTEND Advanced Practice Midwife
DX: Z34.83 Encounter for supervision of other normal pregnancy, third trimester (principal); Z36.85 Encounter for antenatal screening for Streptococcus B; Z36.89 Encounter for other specified antenatal screening

== ENCOUNTER 2019-03-21 16:29 | Outpatient (CLI) | payer OTHER ==
[~2019-03-21] VITALS: Ht 160 cm; Wt 105.6 kg
[2019-03-21 16:52] VITALS: BP 126/65
[2019-03-21] MEDS ORDERED: ZOFR4TAB16 PO (16:53)
== END 2019-03-21 18:05 | disposition home or self-care (01) ==
LOC: M LDO 16:29
PROVIDERS: ATTEND Obstetrics & Gynecology
DX: O47.1 False labor at or after 37 completed weeks of gestation (principal); Z3A.39 39 weeks gestation of pregnancy

== ENCOUNTER 2019-03-28 14:04 | Inpatient (IN) | payer OTHER ==
[2019-03-28] VITALS (9 sets, daily range): BP systolic 118–140; BP diastolic 56–80
[~2019-03-28] VITALS: Ht 160 cm; Wt 107.2 kg
[~2019-03-28 14:04] MED LIST changes: +ZOFR4TAB16 PO
[2019-03-28] MEDS ORDERED: PENICILLIN G POTASSIUM IV 5 MU in D5W MINI-BAG PLUS 100 ML IV STA (14:40)
[2019-03-28 14:59] LABS: HEMATOCRIT 29.1 % (36.0-47.0); HEMOGLOBIN 9.5 g/dl (12.0-15.5); MEAN CORPUSCULAR HEMOGLOBIN 25.5 pg (27.0-33.0); MEAN CORPUSCULAR HGB CONC 32.6 g/dl (32.0-36.5); PLATELET COUNT, AUTOMATED 199 10^3/uL (150-450); RED BLOOD COUNT 3.73 10^6/uL (4.00-5.40)
[2019-03-28] MEDS: LR 1,000 ML IV SCH ×2 (15:02→23:00)
[2019-03-28] MEDS: miSOPROStol 50 MCG 1/2 TAB (S0191) PO SCH ×2 (15:02→19:00)
[2019-03-28] MEDS ORDERED: PENICILLIN G POTASSIUM IV 2.5 MU in APPROPRIATE DILUENT 1 EA IV SCH (18:45)
[2019-03-29] VITALS (26 sets, daily range): BP systolic 101–139; BP diastolic 49–67
[2019-03-29] MEDS: LR 1,000 ML IV SCH ×2 (00:29→07:56)
[2019-03-29] MEDS ORDERED: OXYTOCIN DRIP 30 UNITS in APPROPRIATE DILUENT 1 EA IV SCH ×2 (00:30→10:58)
[2019-03-29] MEDS ORDERED: FENTANYL 2MCG/ML ROPIVACAINE 0.2% IN 0.9% NACL 100ML IVBAG As Ordered ONE (01:48)
[2019-03-29] MEDS ORDERED: ePHEDrine SULFATE 25 MG/5 ML(5MG/ML) SYRINGE IV PRN (03:15)
[2019-03-29] MEDS ORDERED: NALOXONE INJ 0.4 MG/1 ML VIAL (J2310) IV PRN (03:15)
[2019-03-29] MEDS ORDERED: diphenhydrAMINE INJ 50MG/ML VIAL (J1200) IV PRN (03:15)
[2019-03-29] MEDS ORDERED: REFRIGERATOR IV KEYS XX PRN (03:15)
[2019-03-29] MEDS ORDERED: FENTANYL/ROPIVACAINE/NACL BAG 100 ML EPIDURAL SCH (03:15)
[2019-03-29] MEDS ORDERED: EPIDURAL/PCA KEYS XX PRN (03:15)
[2019-03-29] MEDS ORDERED: LACTATED RINGER'S 1000 ML IV PRN (03:15)
[2019-03-29] MEDS ORDERED: ONDANSETRON 4MG/2ML VIAL (J2405) IV PRN (03:15)
[2019-03-29] MEDS ORDERED: EPIDURAL COMMENT XX SCH (03:15)
[2019-03-29] MEDS ORDERED: PENICILLIN 100,000 U/ML SYRINGE 2.5MU As Ordered ONE (06:15)
[2019-03-29] MEDS ORDERED: SLF 3 ML SYR IV PRN ×2 (07:45→20:15)
--- NOTE | 2019-03-29 07:50 | HPE ---
DATE OF ADMISSION: 03/28/2019 REASON FOR ADMISSION: Induction of labor. HISTORY OF PRESENT ILLNESS: This patient is a 23-year-old, 2, para 1, who presents at 40 weeks 5 days estimated gestational age by last menstrual period, confirmed by first trimester ultrasound here for induction of labor. Her course has been unremarkable. She initiated care in her first trimester and has been appropriate throughout. PAST MEDICAL HISTORY: None. PAST SURGICAL HISTORY: None. OBSTETRICAL HISTORY: She is a 2, para 1. She has had one term vaginal delivery uncomplicated proven to 7 pounds 6 ounces. MEDICATIONS: - Include Zoloft. She has ALLERGIES to NEOSPORIN. SOCIAL HISTORY: Denies any alcohol, tobacco, or drug use during her . PHYSICAL EXAM: Vital signs: Stable. She is afebrile. She has category 1 heart tracing. No contractions on tocometer. General appearance is well appearing, no acute distress. Her lungs are clear to auscultation bilaterally. Cardiovascular: Heart regular heart regular rate and rhythm. Her abdomen is gravid, nontender. Estimated weight (EFW) 3500 grams. Cervical exam: She was 1 cm dilated, 50% effaced, -2 station. LABS: Her blood type is O+. Antibody screen was negative. Rubella is immune. RPR is nonreactive. Hepatitis surface antigen negative. HIV is negative. Hep C is nonreactive. Chlamydia and gonorrhea screens are negative. She had a normal 1-hour Glucola and she is GBS positive. ASSESSMENT: 1. This patient is a 23-year-old, 2, para 1, at 40 weeks 5 days estimated gestational age by last menstrual period, confirmed by first trimester ultrasound, here for induction of labor. 2. Reassuring status. 3. Group B streptococcus (GBS) positive. PLAN: 1. Admit to labor and delivery. Complete blood count (CBC), rapid plasma reagin (RPR), and type and screen. 2. Antibiotics for GBS prophylaxis. 3. The patient has been thoroughly counseled in regards to induction of labor. I discussed medication as well as procedures performed in labor and delivery. She has also been verbally consented for emergency surgery, blood products, and anesthesia and desires to proceed with induction of labor. 4. Will initiate her induction with 50 mcg of oral misoprostol.
[2019-03-29] MEDS ORDERED: PENICILLIN G POTASSIUM IV 2.5 MU in APPROPRIATE DILUENT 1 EA IV SCH (10:15)
[2019-03-29] MEDS ORDERED: IBUPROFEN 800 MG TAB PO PRN (11:00)
[2019-03-29] MEDS ORDERED: MEASLES,MUMPS,RUBELLA VACCINE INJ (MMR-II) (90707) SC SCH (11:00)
[2019-03-29] MEDS ORDERED: MOM 30ML SUSPENSION UDC PO PRN (11:00)
[2019-03-29] MEDS ORDERED: ACETAMINOPHEN TAB 650MG DOSE (2X325MG) PO PRN (11:00)
[2019-03-29] MEDS ORDERED: IBUPROFEN 600 MG TAB PO PRN (11:00)
[2019-03-29] MEDS ORDERED: DIBUCAINE 1% OINTMENT 30GM TOP PRN (11:00)
[2019-03-29] MEDS ORDERED: ACETAMINOPHEN 500 MG TAB PO PRN (11:00)
[2019-03-29] MEDS ORDERED: RHOGAM 300 MCG (1500 IU) INJ (J2790) IM SCH (11:00)
[2019-03-29] MEDS ORDERED: ANUSOL HC CREAM 30GM TOP PRN (11:00)
[2019-03-29] MEDS ORDERED: DOCUSATE SODIUM 100 MG CAP PO PRN (11:00)
[2019-03-29] MEDS ORDERED: SLF 3 ML SYR IV SCH (14:00)
--- NOTE | 2019-03-29 17:56 | DN ---
DATE OF PROCEDURE: 03/29/2019 TIME OF : 11:26 GENDER: Male. SCORE 8 and10. WEIGHT: 3610 grams, 7 pounds 15 ounces. LACERATIONS: None. ESTIMATED BLOOD LOSS. 300 mL ANESTHESIA: Epidural DELIVERY NOTE: On March 29, 2019 at 11:26, this patient, a 23-year-old, 2 now para 2 had a spontaneous vaginal delivery of a live born male infant, score 8 and 10, weight was 3610 grams, 7 pounds 15 ounces. Head was delivered in an occiput anterior (OA) over intact perineum. There was a nuchal cord which was manually reduced followed by delivery of shoulders and corpus. Infant was handed to mom with a good cry and cord was clamped x2 and was cut. Placenta was then drained delivered grossly intact. A premixed bag of 500 mL of normal saline with 30 units of Pitocin was bolused along with you uterine massage. Her uterus was firm. On inspection, cervix, vagina and perineum were grossly intact, hemostatic. Mom and baby recovered in stable condition. The couple decided to name their son Nelson Lopez.
[2019-03-29] MEDS: SERTRALINE HCL 50 MG TAB PO SCH (18:04)
[2019-03-29] MEDS: SLF 3 ML SYR IV SCH (22:46)
[2019-03-30] MEDS: SLF 3 ML SYR IV SCH ×2 (05:47→14:00)
[2019-03-30 06:05] VITALS: BP 117/65
[2019-03-30] MEDS ORDERED: PRENATAL VITAMINS CHEWABLE TABLET PO SCH (09:00)
[2019-03-30] MEDS: SERTRALINE HCL 50 MG TAB PO SCH (09:42)
[2019-03-30] MEDS ORDERED: ACET-683 PO (13:59)
[2019-03-30] MEDS ORDERED: IBUP80TA PO (13:59)
== END 2019-03-30 19:20 | disposition home or self-care (01) | DRG 560 ==
LOC: M LDI 14:04 → M OBS 03-29 13:59
PROVIDERS: ADMIT Obstetrics & Gynecology; ATTEND Obstetrics & Gynecology
PROC: 10E0XZZ Delivery of Products of Conception, External Approach (ICD-10-PCS; principal; 2019-03-29)
PROC: 3E0P7GC Introduction of Other Therapeutic Substance into Female Reproductive, Via Natural or Artificial Opening (ICD-10-PCS; 2019-03-29)
DX: O48.0 Post-term pregnancy (principal); O99.824 Streptococcus B carrier state complicating childbirth; Z3A.40 40 weeks gestation of pregnancy; Z37.0 Single live birth; O69.81X0 Labor and delivery complicated by cord around neck, without compression, not applicable or unspecified

== ENCOUNTER 2019-05-14 14:52 | Emergency (ER) | payer OTHER ==
[~2019-05-14] VITALS: Ht 160 cm; Wt 104.5 kg
[~2019-05-14 14:52] MED LIST changes: +ACET-683 PO; +IBUP80TA PO
[2019-05-14] MEDS ORDERED: SERT-155 (15:07)
[2019-05-14 18:00] VITALS: BP 122/60
[2019-05-14] MEDS ORDERED: PERCOCET 5MG/325MG TAB PO ONE (18:00)
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
[2019-05-14] MEDS ORDERED: KETOROLAC 60 MG/2 ML VIAL (J1885) IM ONE (18:45)
--- NOTE | 2019-05-14 19:04 | REP ---
Right femur two views : There is no fracture or dislocation. Mineralization and joint spaces are normal. There are no calcifications or foreign bodies. Impression: Negative right femur . Electronically Signed by Aristeo Barragan MD 05/14/2019 06:56 P
--- NOTE | 2019-05-14 19:05 | REP ---
AP pelvis: There is no pelvic fracture. The right and left hip articulations are unremarkable. Sacroiliac articulations are unremarkable. Mineralization is normal. Impression: No pelvic fracture. Right hip two views: There is no fracture or dislocation. Mineralization joint space are normal. There are no calcifications. Impression: Negative right hip. Electronically Signed by Aristeo Barragan MD 05/14/2019 06:57 P
== END 2019-05-14 19:00 | disposition home or self-care (01) ==
LOC: EDBD 14:52 → M ED 14:52
DX: S70.01XA Contusion of right hip, initial encounter (principal); S70.11XA Contusion of right thigh, initial encounter; V49.59XA Passenger injured in collision with other motor vehicles in traffic accident, initial encounter; Y92.410 Unspecified street and highway as the place of occurrence of the external cause; F33.9 Major depressive disorder, recurrent, unspecified; Z79.899 Other long term (current) drug therapy; F17.210 Nicotine dependence, cigarettes, uncomplicated
CPT/HCPCS: 70450; 72125; 73502; 73552; 96372; 99284; J1885

== ENCOUNTER → 2019-07-09 | Outpatient (REF) | payer OTHER ==
[~2019-07-09] MED LIST changes: +SERT50TA29
[2019-07-09 17:59] LABS: HEMATOCRIT 33.7 % (36.0-47.0); HEMOGLOBIN 10.7 g/dl (12.0-15.5); MEAN CORPUSCULAR HEMOGLOBIN 24.5 pg (27.0-33.0); MEAN CORPUSCULAR HGB CONC 31.8 g/dl (32.0-36.5); MEAN CORPUSCULAR VOLUME 77.1 fl (80.0-96.0); PLATELET COUNT, AUTOMATED 245 10^3/uL (150-450); RED BLOOD COUNT 4.37 10^6/uL (4.00-5.40); WHITE BLOOD COUNT 6.5 10^3/uL (4.0-10.0)
[2019-07-09 18:13] LABS: HCG, SERUM QUANTITATIVE 61931 MIU/ML
[2019-07-10 11:02] LABS: RUBELLA IgG QUALITATIVE IMMUNE (IMMUNE)
[2019-07-10 11:31] LABS: HEPATITIS C VIRUS ABY INDEX 0.1 INDEX (<0.8); HIV 1&2 SCREEN CENTAUR NEGATIVE (NEGATIVE)
== END ==
LOC: M LAB REF 17:17
PROVIDERS: ATTEND Nurse Practitioner Women's Health
DX: Z32.01 Encounter for pregnancy test, result positive (principal)

== ENCOUNTER → 2019-08-26 | Outpatient (REF) | payer OTHER, MEDICAID ==
[2019-08-26 14:11] LABS: BASO % 0.5 % (0.0-1.0); EOS # 0.2 10^3/uL (0.0-0.5); EOS % 2.7 % (0.0-3.0); HEMATOCRIT 35.1 % (36.0-47.0); HEMOGLOBIN 11.1 g/dl (12.0-15.5); LYMPH # 1.9 10^3/uL (1.5-5.0); LYMPH % 31.3 % (24.0-44.0); MEAN CORPUSCULAR HEMOGLOBIN 25.2 pg (27.0-33.0); MEAN CORPUSCULAR HGB CONC 31.6 g/dl (32.0-36.5); MEAN CORPUSCULAR VOLUME 79.6 fl (80.0-96.0); MONO # 0.4 10^3/uL (0.0-0.8); MONO % 6.8 % (0.0-5.0); NEUTROPHILS # 3.5 10^3/uL (1.5-8.5); NEUTROPHILS % 58.4 % (36.0-66.0); PLATELET COUNT, AUTOMATED 199 10^3/uL (150-450); RED BLOOD COUNT 4.41 10^6/uL (4.00-5.40)
[2019-08-26 14:33] LABS: ALBUMIN 3.1 GM/DL (3.2-5.2); ALT/SGPT 12 U/L (12-78); BILIRUBIN,TOTAL 0.1 MG/DL (0.2-1.0); BLOOD UREA NITROGEN 6 MG/DL (7-18); CALCIUM LEVEL 8.4 MG/DL (8.5-10.1); CARBON DIOXIDE LEVEL 23 MEQ/L (21-32); CHLORIDE LEVEL 105 MEQ/L (98-107); CHOLESTEROL LEVEL 155 MG/DL (<200); CREATININE FOR GFR 0.48 MG/DL (0.55-1.30); FREE T4 1.06 NG/DL (0.76-1.46); GLOMERULAR FILTRATION RATE > 60.0 (>60); GLUCOSE, FASTING 88 MG/DL (70-100); HDL CHOLESTEROL 52 MG/DL (>40); LDL CHOLESTEROL 76 MG/DL (<100); NON-HDL-C 103 MG/DL; POTASSIUM SERUM 3.7 MEQ/L (3.5-5.1); SODIUM LEVEL 137 MEQ/L (136-145); TOTAL PROTEIN 6.9 GM/DL (6.4-8.2); TRIGLYCERIDES LEVEL 136 MG/DL (<150)
== END ==
LOC: M LAB REF 14:00
PROVIDERS: ATTEND Physician Assistant
DX: Z13.9 Encounter for screening, unspecified (principal); F32.9 Major depressive disorder, single episode, unspecified; F41.1 Generalized anxiety disorder

== ENCOUNTER → 2019-09-17 | Outpatient (CLI) | payer MEDICAID, OTHER ==
--- NOTE | 2019-09-18 04:05 | REP ---
Clinical: Anatomical evaluation. Comparison: None . Findings: Examination demonstrates a single live intrauterine in breech presentation. motion is identified by technologist. Placenta is noted posterior and grade I without evidence for placenta previa or abruption. Amniotic fluid volume is normal. Cervix measures 3.2 cm in length and appears closed. No evidence for nuchal cord. Gestational age by current measurements 18 weeks 4 days with ANIL 02/14/2020 . FHR equals 138 beats per minute. BPD 4.0 cm 18 weeks 1 day HC 15.6 cm 18 weeks 4 days AC 13.8 cm 19 weeks 2 days FL 2.9 cm 18 weeks 6 days HL 2.8 cm 19 weeks 0 days HC/AC ratio 1.13 Estimated weight 266 grams ( 61st percentile). Anatomical assessment demonstrates normal structures including cranium, choroid plexus, cavum, cerebellum/posterior fossa, facial features, lungs, diaphragm, stomach, cord insertion/three-vessel cord, kidneys/bladder, spine, and extremities. Impression: Single live intrauterine in breech presentation. Limited evaluation of the four-chamber heart and ventricular outflow tract.
== END ==
LOC: M WHC 07:56
PROVIDERS: ATTEND Advanced Practice Midwife
DX: Z34.82 Encounter for supervision of other normal pregnancy, second trimester (principal); Z3A.18 18 weeks gestation of pregnancy

== ENCOUNTER → 2019-10-05 | Outpatient (REF) | payer OTHER | LOC: M SFHCWAGY 12:59 | PROVIDERS: ATTEND Advanced Practice Midwife | DX: Z34.92 Encounter for supervision of normal pregnancy, unspecified, second trimester (principal) ==

== ENCOUNTER → 2019-12-16 | Outpatient (REF) | payer OTHER | LOC: M SFHCWAGY 17:57 | PROVIDERS: ATTEND Advanced Practice Midwife | DX: Z34.83 Encounter for supervision of other normal pregnancy, third trimester (principal) ==

== ENCOUNTER → 2019-12-22 | Outpatient (CLI) | payer OTHER ==
--- NOTE | 2019-12-23 04:30 | REP ---
Clinical: Anatomical evaluation. Comparison: 09/17/2019 . Findings: Examination demonstrates a single live intrauterine in cephalic presentation. motion is identified by technologist. Placenta is noted posterior and grade I without evidence for placenta previa or abruption. Amniotic fluid volume is normal. Cervix measures 3.4 cm in length and appears closed. No evidence for nuchal cord. Gestational age by LMP 32 weeks 2 days with ANIL 02/14/2020 . Gestational age by current measurements 32 weeks 4 days with ANIL 02/12/2020 . FHR equals 139 beats per minute. Amniotic fluid index: 13.5 cm Estimated weight by current biometrical measurements 1919 grams ( 41st percentile). Anatomical assessment demonstrates normal structures including cranium, lungs, four-chamber heart/ventricular outflow tracts, diaphragm, stomach, three-vessel cord, kidneys/bladder. Impression: Single live intrauterine in cephalic presentation demonstrating appropriate estimated weight and growth. In conjunction with prior examination anatomical assessment is complete and normal.
== END ==
LOC: M WHC 09:33
PROVIDERS: ATTEND Advanced Practice Midwife
DX: Z34.92 Encounter for supervision of normal pregnancy, unspecified, second trimester (principal); Z36.2 Encounter for other antenatal screening follow-up; Z3A.32 32 weeks gestation of pregnancy

== ENCOUNTER → 2019-12-29 | Outpatient (REF) | payer OTHER ==
[2019-12-29 12:56] LABS: HEMATOCRIT 28.7 % (36.0-47.0); MEAN CORPUSCULAR HEMOGLOBIN 24.1 pg (27.0-33.0); MEAN CORPUSCULAR HGB CONC 31.4 g/dl (32.0-36.5); MEAN CORPUSCULAR VOLUME 76.7 fl (80.0-96.0); PLATELET COUNT, AUTOMATED 186 10^3/uL (150-450); RED BLOOD COUNT 3.74 10^6/uL (4.00-5.40); WHITE BLOOD COUNT 6.9 10^3/uL (4.0-10.0)
== END ==
LOC: M PLALAB 10:08
PROVIDERS: ATTEND Specialist
DX: Z36.89 Encounter for other specified antenatal screening (principal)

== ENCOUNTER → 2020-01-05 | Outpatient (CLI) | payer OTHER | LOC: M LAB 07:08 | PROVIDERS: ATTEND Advanced Practice Midwife | DX: O99.810 Abnormal glucose complicating pregnancy (principal) ==

== ENCOUNTER → 2020-01-15 | Outpatient (REF) | payer OTHER | LOC: M PLALAB 11:26 | PROVIDERS: ATTEND Advanced Practice Midwife | DX: O99.013 Anemia complicating pregnancy, third trimester (principal); D64.9 Anemia, unspecified; Z36.85 Encounter for antenatal screening for Streptococcus B ==

== ENCOUNTER 2020-02-20 09:00 | Inpatient (IN) | payer OTHER ==
[~2020-02-20] VITALS: Ht 160 cm; Wt 112.9 kg
[2020-02-20] VITALS (36 sets, daily range): BP systolic 101–139; BP diastolic 52–70
[2020-02-20 09:48] LABS: HEMATOCRIT 29.4 % (36.0-47.0); MEAN CORPUSCULAR HEMOGLOBIN 22.6 pg (27.0-33.0); MEAN CORPUSCULAR HGB CONC 30.6 g/dl (32.0-36.5); MEAN CORPUSCULAR VOLUME 73.7 fl (80.0-96.0); PLATELET COUNT, AUTOMATED 214 10^3/uL (150-450); RED BLOOD COUNT 3.99 10^6/uL (4.00-5.40); WHITE BLOOD COUNT 9.3 10^3/uL (4.0-10.0)
[2020-02-20] MEDS ORDERED: miSOPROStol 50 MCG 1/2 TAB (S0191) SL SCH (10:00)
--- NOTE | 2020-02-20 10:31 | HPE ---
DATE OF ADMISSION: 02/20/2020 24-year-old, G3, P2 female at 41-0/7 weeks gestation by 12-week ultrasound, estimated date of confinement (EDC) of 02/13/2020, presents for labor induction. She does not feel any contractions. She has no vaginal bleeding. Patient's course [facility]. There have been no complications. OBSTETRICAL HISTORY: 1. November 2015, 40-week vaginal delivery 7-pound 6-ounce male . 2. March 2019, 40-week vaginal delivery 7-pound 15-ounce male infant. MEDICAL HISTORY: Depression/anxiety. SURGICAL HISTORY: None. ALLERGIES: None. SOCIAL HISTORY: Patient lives in [place]. She is , and she denies cigarettes, alcohol, or drug use. FAMILY HISTORY: Noncontributory. PHYSICAL EXAM: Blood pressure is 108/57, pulse 91. Afebrile. No apparent distress. Head/neck exam: Normal. Lungs: Clear. Heart: Regular. Abdomen: Nontender. Gravid. heart tones category 1. Sterile vaginal exam: 3-4 cm, 50% effaced, -2, posterior, soft, vertex. Extremities: Nontender. LABS: GBS negative. Blood type O positive. ASSESSMENT/PLAN: 24-year-old, G3, P2 female at 41-0/7 weeks gestation by 12-week ultrasound, presents for labor induction. PLAN: Patient is admitted on 02/20/2020. Risks for induction were discussed.
[2020-02-20 13:07] LABS: CHLAMYDIA DNA AMPLIFICATION NEGATIVE (NEGATIVE); GC DNA AMPLIFICATION NEGATIVE (NEGATIVE)
[2020-02-20] MEDS ORDERED: OXYTOCIN 30 UNITS IN 0.9% NaCl 500ML IV BAG (J2590) As Ordered ONE (14:04)
[2020-02-20] MEDS: LR 1,000 ML IV SCH ×2 (14:09→18:02)
[2020-02-20] MEDS ORDERED: OXYTOCIN DRIP 30 UNITS in IV 1 EA IV SCH (14:15)
[2020-02-20] MEDS ORDERED: FENTANYL 2MCG/ML ROPIVACAINE 0.2% IN 0.9% NACL 100ML IVBAG As Ordered ONE (15:02)
[2020-02-20] MEDS ORDERED: EPIDURAL COMMENT XX SCH (16:15)
[2020-02-20] MEDS ORDERED: FENTANYL/ROPIVACAINE/NACL BAG 100 ML EPIDURAL SCH (16:15)
[2020-02-20] MEDS ORDERED: REFRIGERATOR IV KEYS XX PRN (16:15)
[2020-02-20] MEDS ORDERED: ePHEDrine SULFATE 25 MG/5 ML(5MG/ML) SYRINGE IV PRN (16:15)
[2020-02-20] MEDS ORDERED: NALOXONE INJ 0.4MG/1ML VIAL (J2310 PER 1MG) IV PRN (16:15)
[2020-02-20] MEDS ORDERED: LACTATED RINGER'S 1000 ML IV PRN (16:15)
[2020-02-20] MEDS ORDERED: diphenhydrAMINE 50MG/ML VIAL (J1200) IV PRN (16:15)
[2020-02-20] MEDS ORDERED: EPIDURAL/PCA KEYS XX PRN (16:15)
[2020-02-20] MEDS ORDERED: ONDANSETRON 4MG/2ML VIAL IV PRN ×2 (16:15→21:15)
[2020-02-20] MEDS ORDERED: RHOGAM 300 MCG (1500 IU) INJ (J2790) IM SCH (21:15)
[2020-02-20] MEDS ORDERED: IBUPROFEN 600MG TAB PO PRN (21:15)
[2020-02-20] MEDS ORDERED: MEASLES,MUMPS,RUBELLA VACCINE INJ (MMR-II) (90707) SC SCH (21:15)
[2020-02-20] MEDS ORDERED: OXYTOCIN DRIP 30 UNITS in IV 1 EA IV ONE (21:15)
[2020-02-20] MEDS ORDERED: DIBUCAINE 1% OINTMENT 30GM TOP PRN (21:15)
[2020-02-20] MEDS ORDERED: ACETAMINOPHEN TAB 650MG DOSE (2X325MG) PO PRN (21:15)
[2020-02-20] MEDS ORDERED: IBUPROFEN 800 MG TAB PO PRN (21:15)
[2020-02-20] MEDS ORDERED: DOCUSATE SODIUM 100 MG CAP PO PRN (21:15)
[2020-02-20] MEDS ORDERED: ACETAMINOPHEN 500 MG TAB PO PRN (21:15)
[2020-02-20] MEDS ORDERED: METHYLERGONOVINE MALEATE 0.2 MG TAB PO PRN (21:15)
[2020-02-21 06:00] VITALS: BP 119/57
[2020-02-21] MEDS: PRENATAL VITAMINS CHEWABLE TABLET PO SCH (08:35)
[2020-02-21 18:00] VITALS: BP 117/69
[2020-02-22 06:00] VITALS: BP 122/61
[2020-02-22] MEDS: PRENATAL VITAMINS CHEWABLE TABLET PO SCH (08:05)
[2020-02-22] MEDS ORDERED: ACET-683 PO (09:22)
[2020-02-22] MEDS ORDERED: IBUP80TA PO (09:22)
--- NOTE | 2020-03-01 15:51 | DN ---
DATE OF DELIVERY: 02/20/2020 PREDELIVERY DIAGNOSIS: 41 weeks gestation, labor induction. POSTDELIVERY DIAGNOSIS: Delivered. PROCEDURE: Spontaneous vaginal delivery. [employer] MANAGER: Zach Torrez MD ANESTHESIA: Epidural. ESTIMATED BLOOD LOSS: 400 mL. FINDINGS: 8 pound 8 ounce male infant. scores 9 and 9. DELIVERY SUMMARY: After a 20 minute second stage, patient had spontaneous delivery of a 8 pound 8 ounce male infant, scores 9 and 9 under epidural anesthesia. There was no nuchal cord. The shoulders delivered with ease. The was handed to the mother and cried immediately. The cord was doubly clamped and cut. The placenta delivered spontaneously and appeared to be intact. A small first-degree perineal laceration did not require repair. Sponge counts were correct.
== END 2020-02-22 11:25 | disposition home or self-care (01) | DRG 560 ==
LOC: M LDI 09:00 → M OBS 21:58
PROVIDERS: ADMIT Specialist; ATTEND Specialist
PROC: 10E0XZZ Delivery of Products of Conception, External Approach (ICD-10-PCS; principal; 2020-02-20)
DX: O48.0 Post-term pregnancy (principal); O70.0 First degree perineal laceration during delivery; Z37.0 Single live birth; Z3A.41 41 weeks gestation of pregnancy

== ENCOUNTER → 2021-03-07 | Outpatient (CLI) | payer OTHER ==
[2021-03-07 16:34] LABS: HEMATOCRIT 31.9 % (36.0-47.0); HEMOGLOBIN 9.8 g/dl (12.0-15.5); MEAN CORPUSCULAR HEMOGLOBIN 22.3 pg (27.0-33.0); MEAN CORPUSCULAR HGB CONC 30.7 g/dl (32.0-36.5); MEAN CORPUSCULAR VOLUME 72.5 fl (80.0-96.0); PLATELET COUNT, AUTOMATED 186 10^3/uL (150-450); WHITE BLOOD COUNT 5.9 10^3/uL (4.0-10.0)
[2021-03-07 18:00] LABS: HEPATITIS C VIRUS ABY INDEX 0.1 INDEX (<0.8); HIV 1&2 SCREEN CENTAUR NEGATIVE (NEGATIVE)
== END ==
LOC: M PLALAB 13:41
PROVIDERS: ATTEND Specialist
DX: Z34.81 Encounter for supervision of other normal pregnancy, first trimester (principal)

== ENCOUNTER → 2021-04-04 | Outpatient (CLI) | payer OTHER ==
[2021-04-04 16:40] LABS: GC DNA AMPLIFICATION NEGATIVE (NEGATIVE)
== END ==
LOC: M PLALAB 13:47
PROVIDERS: ATTEND Obstetrics & Gynecology
DX: Z34.82 Encounter for supervision of other normal pregnancy, second trimester (principal); Z3A.17 17 weeks gestation of pregnancy

== ENCOUNTER → 2021-04-04 | Outpatient (REF) | payer OTHER | LOC: M PLALAB 10:30 | PROVIDERS: ATTEND Obstetrics & Gynecology | DX: Z34.92 Encounter for supervision of normal pregnancy, unspecified, second trimester (principal); Z3A.17 17 weeks gestation of pregnancy ==

== ENCOUNTER → 2021-04-26 | Outpatient (CLI) | payer OTHER ==
--- NOTE | 2021-04-26 15:21 | REP ---
INDICATION: ANATOMY. COMPARISON: None. TECHNIQUE: Transabdominal obstetric sonography. FINDINGS: Scanning through the gravid uterus demonstrates a viable single intrauterine gestation in transverse lie. motion is observed and heart rate is recorded at 136 beats per minute. A posterior placenta is seen, grade 1, without evidence of placenta previa. Closed cervical length is measured at 3.8 cm transabdominally. No extrauterine abnormality is observed. Amniotic fluid is subjectively normal. The following anatomic structures are identified felt to be unremarkable: cranium, intracranial anatomy, lungs, left and right ventricular cardiac outflow tract views, diaphragm, left-sided stomach, abdominal wall cord insertion, right and left kidney, urinary bladder, upper and lower extremities, three-vessel cord. The following anatomic structures are less than optimally seen: Face and profile nose and lips, four-chamber heart, spine. Biometry chart: BPD 4.6 cm, 19 weeks 6 days Head circumference 17.6 cm, 20 weeks 1 day Abdominal circumference 15.0 cm, 20 weeks 2 days Femur length 3.1 cm, 19 weeks 5 days Humeral length 3.0 cm, 19 weeks 5 days HC AC ratio normal 1.17 Cephalic index normal 0.71 Estimated weight 326 g, 0 lb 11 oz, 24th percentile for 20 weeks 3 days IMPRESSION: Viable single intrauterine gestation at 20 weeks 0 days by today's composite sonographic criteria. ANIL by today's sonography September 13, 2021. No complication identified. Expected gestational age estimate based on known ANIL of September 10, 2021 is 20 weeks 3 days. Face and profile, four-chamber heart, and spine views less than optimally achieved due to position. <Electronically signed by Franco Shields > 04/26/21 [id number]
== END ==
LOC: M WHC 13:15
PROVIDERS: ATTEND Obstetrics & Gynecology
DX: Z34.92 Encounter for supervision of normal pregnancy, unspecified, second trimester (principal); Z3A.20 20 weeks gestation of pregnancy

== ENCOUNTER → 2021-05-30 | Outpatient (CLI) | payer OTHER ==
--- NOTE | 2021-05-30 09:02 | REP ---
INDICATION: F/U ANATOMY COMPARISON: 04/26/2021 TECHNIQUE: Transabdominal obstetrical ultrasound with color Doppler evaluation. FINDINGS: Examination demonstrates a single live intrauterine in cephalic presentation. motion is identified by technologist. Placenta is noted and posterior grade 1 without evidence for placenta previa or abruption. Amniotic fluid volume is normal. Cervix measures 4.1 cm in length and appears closed.. Selected gestational age: 25 weeks 1 day with ANIL 09/11/2021. Gestational age by current measurements 25 weeks 1 day with ANIL 09/11/2021. FHR equals 153 beats per minute. Estimated weight 785 grams (40thpercentile). Anatomical assessment demonstrates normal structures including heart/ventricular outflow tracts, spine, facial features including profile. IMPRESSION: Single live intrauterine in cephalic presentation demonstrating appropriate estimated weight. In conjunction with prior examination anatomical assessment is complete and normal. <Electronically signed by Michele Ortiz > 05/30/21 [id number]
== END ==
LOC: M WHC 07:56
PROVIDERS: ATTEND Obstetrics & Gynecology
DX: O99.212 Obesity complicating pregnancy, second trimester (principal); Z3A.25 25 weeks gestation of pregnancy

== ENCOUNTER → 2021-07-28 | Outpatient (CLI) | payer OTHER ==
[~2021-07-28] MED LIST changes: +ACET325C5 PO; +PRENTAB9 PO
[2021-07-28 15:20] LABS: HEMATOCRIT 28.7 % (36.0-47.0); HEMOGLOBIN 8.6 g/dl (12.0-15.5); MEAN CORPUSCULAR HEMOGLOBIN 21.6 pg (27.0-33.0); MEAN CORPUSCULAR VOLUME 71.9 fl (80.0-96.0); PLATELET COUNT, AUTOMATED 188 10^3/uL (150-450); RED BLOOD COUNT 3.99 10^6/uL (4.00-5.40); WHITE BLOOD COUNT 6.1 10^3/uL (4.0-10.0)
== END ==
LOC: M PLALAB 13:40
PROVIDERS: ATTEND Advanced Practice Midwife
DX: Z36.9 Encounter for antenatal screening, unspecified (principal); Z3A.25 25 weeks gestation of pregnancy

== ENCOUNTER → 2021-08-15 | Outpatient (REF) | payer OTHER ==
[~2021-08-15] MED LIST changes: -ACET325C5 PO; -PRENTAB9 PO
== END ==
LOC: M SFHCWAGY 10:04
PROVIDERS: ATTEND Obstetrics & Gynecology
DX: Z36.85 Encounter for antenatal screening for Streptococcus B (principal)

== ENCOUNTER → 2021-09-06 | Outpatient (CLI) | payer OTHER | LOC: M WHC 10:57 | PROVIDERS: ATTEND Obstetrics & Gynecology | DX: O26.843 Uterine size-date discrepancy, third trimester (principal); Z3A.39 39 weeks gestation of pregnancy ==

== ENCOUNTER 2021-09-08 09:06 | Inpatient (IN) | payer OTHER ==
[2021-09-08] VITALS (32 sets, daily range): BP systolic 113–157; BP diastolic 52–82
[~2021-09-08] VITALS: Ht 160 cm; Wt 123.2 kg
[2021-09-08] MEDS ORDERED: ACET325C5 PO (09:24)
[2021-09-08] MEDS ORDERED: PRENTAB9 PO (09:24)
[2021-09-08] MEDS ORDERED: HOME MED LIST COMPLETE! XX SCH (09:35)
[2021-09-08] MEDS ORDERED: miSOPROStol 50MCG 1/2 TABLET PO ONE (11:15)
[2021-09-08 11:19] LABS: HEMATOCRIT 24.1 % (36.0-47.0); HEMOGLOBIN 7.1 g/dl (12.0-15.5); MEAN CORPUSCULAR HEMOGLOBIN 20.5 pg (27.0-33.0); MEAN CORPUSCULAR HGB CONC 29.5 g/dl (32.0-36.5); MEAN CORPUSCULAR VOLUME 69.5 fl (80.0-96.0); PLATELET COUNT, AUTOMATED 144 10^3/uL (150-450); RED BLOOD COUNT 3.47 10^6/uL (4.00-5.40); WHITE BLOOD COUNT 2.9 10^3/uL (4.0-10.0)
[2021-09-08] MEDS ORDERED: OXYTOCIN DRIP 30 UNITS in IV 1 EA IV SCH (14:55)
[2021-09-08] MEDS: LR 1,000 ML IV SCH ×2 (16:09→20:47)
[2021-09-08] MEDS ORDERED: EPIDURAL COMMENT XX SCH (19:50)
[2021-09-08] MEDS ORDERED: NALOXONE INJ 0.4MG/1ML VIAL (J2310 PER 1MG) IV PRN (19:50)
[2021-09-08] MEDS ORDERED: REFRIGERATOR IV KEYS XX PRN (19:50)
[2021-09-08] MEDS ORDERED: FENTANYL/ROPIVACAINE/NACL BAG 100 ML EPIDURAL SCH (19:50)
[2021-09-08] MEDS ORDERED: ePHEDrine SULFATE 25 MG/5 ML(5MG/ML) SYRINGE IV PRN (19:50)
[2021-09-08] MEDS ORDERED: ONDANSETRON 4MG/2ML VIAL IV PRN (19:50)
[2021-09-08] MEDS ORDERED: diphenhydrAMINE 50MG/ML VIAL (J1200) IV PRN (19:50)
[2021-09-08] MEDS ORDERED: LACTATED RINGER'S 1000 ML IV PRN (19:50)
[2021-09-08] MEDS ORDERED: EPIDURAL/PCA KEYS XX PRN (19:50)
[2021-09-08] MEDS ORDERED: FENTANYL 2MCG/ML ROPIVACAINE 0.2% IN 0.9% NACL 100ML IVBAG As Ordered ONE (19:52)
[2021-09-09] VITALS (11 sets, daily range): BP systolic 130–153; BP diastolic 60–81
[2021-09-09] MEDS ORDERED: DOCUSATE SODIUM 100MG CAPSULE PO PRN (02:05)
[2021-09-09] MEDS ORDERED: RHOGAM 300 MCG (1500 IU) INJ (J2790) IM SCH (02:05)
[2021-09-09] MEDS ORDERED: MOM 30ML SUSPENSION UDC PO PRN (02:05)
[2021-09-09] MEDS ORDERED: MEASLES,MUMPS,RUBELLA VACCINE INJ (MMR-II) (90707) SC SCH (02:05)
[2021-09-09] MEDS ORDERED: OXYTOCIN DRIP 30 UNITS in IV 1 EA IV SCH (02:05)
[2021-09-09] MEDS ORDERED: METHYLERGONOVINE MALEATE 0.2 MG TAB PO PRN (02:05)
[2021-09-09] MEDS ORDERED: DIBUCAINE 1% OINTMENT 30GM TOP PRN (02:05)
[2021-09-09] MEDS ORDERED: ACETAMINOPHEN 500 MG TAB PO PRN (02:05)
[2021-09-09] MEDS ORDERED: IBUPROFEN 600MG TAB PO PRN (02:05)
[2021-09-09] MEDS ORDERED: IBUPROFEN 800 MG TAB PO PRN (02:05)
[2021-09-09] MEDS ORDERED: ACETAMINOPHEN TAB 650MG DOSE (2X325MG) PO PRN (02:05)
[2021-09-09] MEDS: PRENATAL VITAMINS CHEWABLE TABLET PO SCH (08:32)
[2021-09-10 05:55] VITALS: BP 110/60
[2021-09-10] MEDS: PRENATAL VITAMINS CHEWABLE TABLET PO SCH (08:01)
== END 2021-09-10 15:45 | disposition home or self-care (01) | DRG 560 ==
LOC: M LDI 09:06 → M OBS 09-09 04:04
PROVIDERS: ADMIT Obstetrics & Gynecology; ATTEND Obstetrics & Gynecology
PROC: 3E0DXGC Introduction of Other Therapeutic Substance into Mouth and Pharynx, External Approach (ICD-10-PCS; 2021-09-08)
PROC: F13Z0ZZ Hearing Screening Assessment (ICD-10-PCS; 2021-09-08)
PROC: 10E0XZZ Delivery of Products of Conception, External Approach (ICD-10-PCS; principal; 2021-09-09)
DX: O40.3XX0 Polyhydramnios, third trimester, not applicable or unspecified (principal); O24.429 Gestational diabetes mellitus in childbirth, unspecified control; Z37.0 Single live birth; Z3A.39 39 weeks gestation of pregnancy

== ENCOUNTER → 2022-07-10 | Outpatient (CLI) | payer OTHER ==
[~2022-07-10] MED LIST changes: +ACET325C5 PO; +FLUO-215 PO; -FLUO5OI PO; +PRENTAB9 PO
== END ==
LOC: M WHC 09:24
PROVIDERS: ATTEND Advanced Practice Midwife
DX: Z34.82 Encounter for supervision of other normal pregnancy, second trimester (principal); Z3A.18 18 weeks gestation of pregnancy

== ENCOUNTER → 2022-07-27 | Outpatient (CLI) | payer OTHER | LOC: M WHC 14:03 | PROVIDERS: ATTEND Specialist | DX: Z34.82 Encounter for supervision of other normal pregnancy, second trimester (principal); Z3A.21 21 weeks gestation of pregnancy ==

== ENCOUNTER → 2022-08-30 | Outpatient (CLI) | payer OTHER | LOC: M RAD 15:51 | PROVIDERS: ATTEND Advanced Practice Midwife | DX: Z34.92 Encounter for supervision of normal pregnancy, unspecified, second trimester (principal); Z3A.26 26 weeks gestation of pregnancy ==

== ENCOUNTER → 2022-09-04 | Outpatient (CLI) | payer OTHER ==
[2022-09-04 15:25] LABS: HEMATOCRIT 30.2 % (36.0-47.0); HEMOGLOBIN 8.9 g/dl (12.0-15.5); MEAN CORPUSCULAR HEMOGLOBIN 20.6 pg (27.0-33.0); MEAN CORPUSCULAR HGB CONC 29.5 g/dl (32.0-36.5); MEAN CORPUSCULAR VOLUME 69.9 fl (80.0-96.0); PLATELET COUNT, AUTOMATED 209 10^3/uL (150-450); RED BLOOD COUNT 4.32 10^6/uL (4.00-5.40); WHITE BLOOD COUNT 6.8 10^3/uL (4.0-10.0)
[2022-09-04 17:09] LABS: GC DNA AMPLIFICATION NEGATIVE (NEGATIVE)
== END ==
LOC: M PLALAB 10:54
PROVIDERS: ATTEND Advanced Practice Midwife
DX: Z34.92 Encounter for supervision of normal pregnancy, unspecified, second trimester (principal); Z3A.00 Weeks of gestation of pregnancy not specified

== ENCOUNTER 2022-09-13 08:39 | Outpatient (CLI) | payer OTHER ==
[~2022-09-13] VITALS: Ht 160 cm; Wt 110.5 kg
[2022-09-13] MEDS ORDERED: IRON SUCROSE 500 MG in NS 250 ML OVER 4 HRS IV ONE (09:00)
[2022-09-13 09:20] VITALS: BP 128/58
[2022-09-13 10:00] VITALS: BP 121/60
[2022-09-13 11:00] VITALS: BP 123/60
[2022-09-13 12:00] VITALS: BP 126/55
[2022-09-13 13:25] VITALS: BP 128/68
== END 2022-09-13 13:30 | disposition home or self-care (01) ==
LOC: M INFU 08:39
PROVIDERS: ATTEND Advanced Practice Midwife
DX: D64.9 Anemia, unspecified (principal)
CPT/HCPCS: 96365; 96366; J1756

== ENCOUNTER → 2022-11-06 | Outpatient (REF) | payer OTHER ==
[~2022-11-06] MED LIST changes: -FLUO-215 PO; +FLUO5OI PO
== END ==
LOC: M SFHCWAGY 12:59
PROVIDERS: ATTEND Obstetrics & Gynecology
DX: Z34.93 Encounter for supervision of normal pregnancy, unspecified, third trimester (principal)

== ENCOUNTER 2023-06-28 09:42 | Day surgery (SDC) | payer OTHER ==
[~2023-06-28] VITALS: Ht 160 cm; Wt 109.3 kg
[2023-06-28] MEDS ORDERED: LR 1,000 ML IV SCH ×3 (09:50→12:25)
[2023-06-28 10:11] LABS: HEMATOCRIT 38.6 % (36.0-47.0); HEMOGLOBIN 11.9 g/dl (12.0-15.5); MEAN CORPUSCULAR HEMOGLOBIN 22.6 pg (27.0-33.0); MEAN CORPUSCULAR HGB CONC 30.8 g/dl (32.0-36.5); MEAN CORPUSCULAR VOLUME 73.2 fl (80.0-96.0); PLATELET COUNT, AUTOMATED 254 10^3/uL (150-450); RED BLOOD COUNT 5.27 10^6/uL (4.00-5.40); WHITE BLOOD COUNT 6.8 10^3/uL (4.0-10.0)
[2023-06-28] MEDS ORDERED: IBUP-1022 PO (10:58)
[2023-06-28] MEDS ORDERED: OXYC1TAB23 PO (11:00)
[2023-06-28] MEDS ORDERED: ROCURONIUM BROMIDE 50MG/5ML VIAL As Ordered ONE (11:36)
[2023-06-28] MEDS ORDERED: fentaNYL 100 MCG/2 ML INJECTION As Ordered ONE (11:36)
[2023-06-28] MEDS ORDERED: MIDAZOLAM INJ 2MG/2ML VIAL As Ordered ONE (11:36)
[2023-06-28] MEDS ORDERED: SUGAMMADEX SODIUM 500 MG/5 ML VIAL (BRIDION) As Ordered ONE (11:36)
[2023-06-28] MEDS ORDERED: dexmedeTOMIDine (4MCG/ML)200MCG/50ML BTL (PRECEDEX) As Ordered ONE (11:36)
[2023-06-28] MEDS ORDERED: propofoL 200 MG/20 ML VIAL As Ordered ONE (11:36)
[2023-06-28] MEDS ORDERED: ONDANSETRON 4MG 2ML VIAL As Ordered ONE (11:36)
[2023-06-28] MEDS ORDERED: LIDOCAINE 2% 100MG/5ML SDV (FOR ANES.) As Ordered ONE (11:36)
[2023-06-28] MEDS ORDERED: HYDROmorphone HCL 2MG/ML 1ML VIAL As Ordered ONE (11:36)
[2023-06-28] MEDS ORDERED: KETOROLAC 60MG 2ML VIAL As Ordered ONE (11:36)
[2023-06-28] MEDS ORDERED: ACETAMINOPHEN 1000MG 100ML IV BAG As Ordered ONE (11:41)
[2023-06-28] MEDS ORDERED: oxyCODONE 5MG TAB PO PRN (12:10)
[2023-06-28] MEDS ORDERED: HYDROMORPHONE HCL 0.5 MG/ 0.5 ML SYRINGE IV PRN (12:10)
[2023-06-28] MEDS ORDERED: ONDANSETRON 4MG 2ML VIAL IV PRN (12:10)
[2023-06-28] MEDS ORDERED: fentaNYL 100 MCG/2 ML INJECTION IV PRN (12:10)
[2023-06-28] MEDS ORDERED: PERCOCET 5MG/325MG TAB PO PRN (12:25)
[2023-06-28 13:30] VITALS: BP 126/74; TEMP 98.2; O2SAT 96
== END 2023-06-28 14:05 | disposition home or self-care (01) ==
LOC: M SDC 09:42
PROVIDERS: ATTEND Specialist
DX: Z30.2 Encounter for sterilization (principal); K66.0 Peritoneal adhesions (postprocedural) (postinfection)
CPT/HCPCS: 36415; 58661; 85027; 88302; J0131; J0665; J1100; J1170; J1885; J2250; J2405; J3010

== ENCOUNTER → 2023-10-23 | Outpatient (REF) | payer OTHER ==
[~2023-10-23] MED LIST changes: +IBUP-1022 PO; +OXYC1TAB23 PO
== END ==
LOC: M LAB REF 12:11
PROVIDERS: ATTEND Physician Assistant
DX: J02.9 Acute pharyngitis, unspecified (principal); B34.9 Viral infection, unspecified